=== PATIENT | male | born 1950 | race Caucasian/White ===

== ENCOUNTER 2022-03-09 05:00 | Outpatient (REF) | payer MEDICARE, SELFPAY | END 2022-03-09 05:01 | disposition home or self-care (01) | LOC: HO.MMNH1L 05:00 | PROVIDERS: Visit Provider Family Medicine | DX: Z13.89 Encounter for screening for other disorder (principal) ==

== ENCOUNTER 2023-11-16 14:43 | Inpatient (IN) | payer MEDICARE, SELFPAY ==
--- NOTE | 2023-11-16 | ECG_ITS ---
Test Reason : AMS Blood Pressure : / mmHG Vent. Rate : 072 BPM Atrial Rate : 072 BPM P-R Int : 140 ms QRS Dur : 144 ms QT Int : 468 ms P-R-T Axes : -27 -78 080 degrees QTc Int : 512 ms Atrial-sensed ventricular-paced rhythm Abnormal ECG No previous ECGs available Referred By: Generic ED Physician Electronically Signed By:Alfonzo Magana
--- NOTE | ~2023-11-16 | XR_ITS ---
EXAMINATION: XR CHEST CLINICAL INFORMATION: Lethargy. COMPARISON: None available. TECHNIQUE: Frontal view of the chest was obtained. FINDINGS: The lungs are well-expanded and clear. The heart size and pulmonary vascularity is normal. There are dual pacer electrodes in right atrium and right ventricle. No gross bony abnormality seen. XR/XR chest 1V IMPRESSION: Unremarkable chest exam.
--- NOTE | ~2023-11-16 | US_ITS ---
EXAMINATION: US VENOUS WITH DOPPLER UPPER EXTREMITY, BILATERAL CLINICAL INFORMATION: Bilateral arm swelling COMPARISON: None available. TECHNIQUE: Ultrasound of the upper extremity is performed using compression sonography and color and pulse Doppler flow with assessment of augmentation of flow. There is also imaging and Doppler assessment of the jugular and subclavian veins. Spectral analysis with color-flow imaging is performed. FINDINGS: Edema is noted bilaterally. In the left arm, there are limited views of the left subclavian vein due to pacemaker. A single left brachial vein is noted. Evaluation of the right arm is very limited due to significant edema and overlying (patent) fistula (loop graft). Plaque is seen within the graft. The right basilic and forearm veins are not seen. Left arm: The left internal jugular and visualized portions of the left subclavian vein are patent with normal flow. Respiratory variation and normal compression are noted within the left axillary, brachial, basilic, cephalic and radial and ulnar veins. Right arm: The right internal jugular and subclavian vein are patent with normal flow. Respiratory variation and normal compression are noted within the right axillary, brachial and cephalic veins. The right basilic vein and forearm veins are not seen. US/US venous duplex UE BI IMPRESSION: No DVT demonstrated in the bilateral upper extremities.
--- NOTE | ~2023-11-16 | CT_ITS ---
EXAMINATION: CT CHEST, ABDOMEN AND PELVIS WITHOUT CONTRAST CLINICAL INFORMATION: Altered mental status, cough, abdominal pain COMPARISON: None TECHNIQUE: Multidetector volumetric imaging was performed from the thoracic inlet through the pubic symphysis. Sagittal and coronal reformatted images were obtained on the technologist's workstation. Axial MIP volume rendering provided. This CT examination was performed using dose optimization techniques as appropriate, variously including the following: *Automated exposure control *Adjustment of mA and/or kV according to patient size (this includes techniques or standardized protocols for targeted exams where dose is matched to indication/reason for exam; i.e. extremities or head) *Use of iterative reconstruction technique DLP: 1319 mGy-cm FINDINGS: CHEST: Lungs: Limited evaluation due to respiratory motion artifact. There is mild dependent atelectasis in the bilateral lower lobes. No additional consolidation is seen. Mediastinum: Thyroid gland is grossly unremarkable. No discrete mediastinal lymphadenopathy is seen, though evaluation is limited without intravenous contrast. Borderline cardiomegaly without pericardial effusion. There is atherosclerotic calcification along the aorta. Coronary Artery Calcification: Present. Patient appears to be status post CABG. Pleura: No pneumothorax. Small pleural effusions. Chest Wall/Axilla: No significant lymphadenopathy. Chest wall varices are noted. Left-sided pacemaker/AICD. ABDOMEN/PELVIS: Suboptimal assessment due to streak artifact secondary to patient's arms by his sides. Liver, Gallbladder, Biliary Tree: The liver is normal in size, shape, and attenuation. No focal hepatic lesion or biliary ductal dilatation is identified on this noncontrast exam. Gallbladder is not adequately evaluated due to streak artifact. Pancreas: Moderately atrophic, suboptimally assessed in the absence of intravenous contrast. Spleen: Unremarkable. Adrenal Glands: Left adrenal nodule measuring up to 1.3 cm and less than 10 Hounsfield units, favoring a lipid rich adenoma. Right adrenal gland appears grossly unremarkable. Kidneys and Ureters: [place]olai kidneys are atrophic with cortical thinning, without hydronephrosis. Right pelvic transplant kidney is present, without appreciable hydronephrosis. Bladder: Mildly distended with diffuse mural prominence. Gastrointestinal Tract: There is prominent distention of the stomach with gas and debris. There is dependent gas along the posterior wall of the fundus, raising suspicion for gastric emphysema. There is also a somewhat thick-walled appearance of the proximal gastric wall. No evidence of bowel obstruction. There is a thick-walled appearance of the ascending colon with adjacent stranding and trace fluid in the right paracolic gutter, which may be indicative of a colitis. Large amount of stool is noted in the rectum. No free air is seen. There is also trace fluid in the left lower quadrant and diffuse mesenteric stranding. Abdominal Wall: Anasarca noted. Lymphovascular Structures: Lymph nodes: No lymphadenopathy is seen, though assessment is limited in the absence of intravenous contrast. Vascular: There is extensive vascular calcification. Pelvic Viscera: Prostate gland appears mildly prominent. OSSEOUS STRUCTURES: Flowing osteophytes in the thoracic spine suggesting diffuse idiopathic skeletal hyperostosis. Status post sternotomy. Degenerative changes are present in the lumbar spine. CT/CT abdomen pelvis wo IV con IMPRESSION: 1. Prominent distention of the stomach with gas and debris. Gas gas along the posterior wall of the gastric fundus, raising suspicion for gastric emphysema. Possible etiologies include emphysematous gastritis, ischemia, or perforated gastric ulcer. 2. Thick-walled appearance of the ascending colon with adjacent stranding and trace fluid, which may be indicative of a colitis. 3. Small pleural effusions. 4. Anasarca. This critical result was discussed with Dr. Mart on 11/17/2023 1:54 AM, and it was ascertained that the content and urgency of the report was understood at the time of direct communication.
--- NOTE | ~2023-11-16 | CT_ITS ---
EXAMINATION: CT head/brain wo IV con CLINICAL INFORMATION: Reason for Exam Change in mental status, rule out fracture, bleed COMPARISON: None. TECHNIQUE: Contiguous axial imaging was performed from the skull base to vertex without intravenous contrast. Sagittal and coronal reformatted images were obtained. This CT examination was performed using dose optimization techniques as appropriate, variously including the following: * Automated exposure control * Adjustment of mA and/or kV according to patient size (this includes techniques or standardized protocols for targeted exams where dose is matched to indication/reason for exam; i.e. extremities or head) Use of iterative reconstruction technique DLP: 803.18 mGy-cm FINDINGS: No acute osseous or soft tissue abnormality. Diffuse vascular calcifications. The mastoids are clear. There is mucosal thickening involving the maxillary and ethmoid sinuses with near complete opacification of the left maxillary sinus which contains central hyperdense material which may reflect secretion inspissation or fungal colonization. Hyperostosis of the left maxillary sinus briones is compatible with sequela of chronic sinusitis. There is no evidence of acute intracranial hemorrhage or territorial infarction. No abnormal mass effect or midline shift is seen. Choi to white matter differentiation is well preserved. No extra-axial fluid collections are identified. No hydrocephalus. Proportional prominence of the ventricles and sulcal spaces is consistent with moderate volume loss. Patchy periventricular and deep white matter hypoattenuation is consistent with mild small vessel ischemic changes. Chronic lacunar infarcts versus prominent perivascular space in the right central myron. CT/CT head/brain wo IV con IMPRESSION: No acute intracranial abnormality including hemorrhage, mass effect, hydrocephalus, or acute territorial edematous infarction.
--- NOTE | ~2023-11-16 | CT_ITS ---
EXAMINATION: CT ABDOMEN AND PELVIS WITHOUT CONTRAST CLINICAL INFORMATION: Question gastric wall air COMPARISON: CT from earlier the same day TECHNIQUE: Multidetector volumetric imaging was performed from the superior aspect of the liver through the pubic symphysis. Oral contrast was utilized. Sagittal and coronal reformatted images were obtained on the technologist's workstation. This CT examination was performed using dose optimization techniques as appropriate, variously including the following: *Automated exposure control *Adjustment of mA and/or kV according to patient size (this includes techniques or standardized protocols for targeted exams where dose is matched to indication/reason for exam; i.e. extremities or head) *Use of iterative reconstruction technique DLP: 794 mGy-cm FINDINGS: LUNG BASES: Redemonstrated small pleural effusions and mild dependent atelectasis. LIVER, GALLBLADDER, AND BILIARY TREE: The liver is normal in size, shape, and attenuation. No focal hepatic lesion or biliary ductal dilatation is identified on this noncontrast exam. Gallbladder appears partially contracted, suboptimally assessed. PANCREAS: Moderately atrophic, otherwise suboptimally assessed. SPLEEN: Grossly unremarkable. ADRENAL GLANDS: Redemonstrated left adrenal nodule, previously suggestive of a lipid rich adenoma. Right adrenal gland is unremarkable. KIDNEYS AND URETERS: The [place] kidneys are atrophic, without hydronephrosis. Right pelvic transplant kidney is noted without appreciable hydronephrosis. BLADDER: Unremarkable. GASTROINTESTINAL TRACT: Oral contrast material is present in the stomach. There is redemonstrated gas along the posterior wall of the gastric fundus and proximal body, dependent relative to the ingested oral contrast. Appearance remains suspicious for gastric emphysema. Contrast material is present throughout the small bowel as well as the proximal colon. No evidence of bowel obstruction. Thick-walled appearance of the ascending colon is again noted moderate amount of stool in the rectum along with some perirectal stranding. Appendix appears gas-filled. Trace free fluid in the abdomen along with diffuse mesenteric stranding/edema. ABDOMINAL WALL: Redemonstrated anasarca. LYMPH NODES: Numerous retroperitoneal lymph nodes, some of which measure near the upper limits of normal in size, suboptimally assessed without intravenous contrast. VASCULAR: Extensive vascular calcification. PELVIC VISCERA: Prostate gland appears mildly prominent. OSSEOUS STRUCTURES: Degenerative changes in the lumbar spine. CT/CT abdomen pelvis wo IV con IMPRESSION: 1. Redemonstrated gas along the posterior wall of the gastric fundus and proximal body, suspicious for gastric emphysema. Differential considerations would include emphysematous gastritis, ischemia, or perforated gastric ulcer. 2. Thick-walled appearance of the ascending colon, which could be secondary to colitis. There is also moderate stool in the rectum with perirectal stranding, which can be seen in the setting of stercoral colitis. 3. Redemonstrated small pleural effusions, anasarca, and diffuse mesenteric stranding/edema.
[2023-11-16 15:35] VITALS: BP 112/62; BP 146/105; PULSE 70; PULSE 71; RESP 18; TEMP 36.6; O2SAT 96; BMI 24.3
--- NOTE | 2023-11-16 15:40 | ED_ITS ---
HPI - Altered Mental Status General Chief Complaint: Altered Mental Status Stated Complaint: LETHARGIC Time Seen by Provider: 11/16/23 15:40 Source: EMS Mode of arrival: EMS Limitations: altered mental status History of Present Illness HPI narrative: 73-year-old male who was sent to the emergency department from [facility] for evaluation of altered mental status. The following information was provided by the nursing facility: ?Per Marylin tomas AP RN patient needs to be sent out to [facility] for further evaluation. Low WBC and low BP. made aware . Nursing facility did send in blood work from 11/16/2023 at 06:05 100 hours [place] [address], microcytic anemia with an H&H of 10.1 and 31.9 with an MCV of 72. Glucose was elevated 243. Sodium was elevated 148. Chloride elevated 113. Her BUN elevated 78 with a creatinine of 3.24. There were no baseline labs provided. EMT report was that the patient had altered mental status, is lethargic since 07:00. The patient is somnolent, he does answer questions, he was able to tell me his name. He does not know why he is here in the emergency department but he is refusing all testing. I did speak to the patient's ex- Irena who is the patient's healthcare proxy . She states that the healthcare proxy has not been invoked and the patient has been able to make his own healthcare decisions however there was some discussion with the [facility] about getting the patient evaluated for competency. This has not been done yet. I did obtain a discharge record from [facility] dated 11/12/2023. Discharge diagnosis is as follows: Fall, acute on chronic systolic and diastolic heart failure with EF of 10%, DVT on Xarelto, ICD, acute kidney injury superimposed on chronic kidney disease, donor kidney transplant, high anion gap metabolic acidosis, diabetes mellitus type 2, long-term current use of tacrolimus, pancreatic lesion, coronary disease. Patient's discharge BUN and creatinine was 91 and 3.8. Related Data Allergies Allergy/AdvReac Type Severity Reaction Status Date / Time No Known Allergies Allergy Verified 11/16/23 15:52 [facility] Social History Social History Advance Directives: Yes Advance Directives on File: Yes Advance Directives Date on File: 11/16/23 Physical Exam ED Vital Signs: Vital Signs - 24 hr 11/16/23 15:35 11/16/23 18:11 Temperature 98 F 97.7 F Pulse Rate 71 70 Respiratory Rate 18 14 Blood Pressure 146/105 H 120/40 L Pulse Oximetry 96 96 Oxygen Delivery Method Room Air Room Air BMI result Body Mass Index 24.3 Mental health vital signs revealed normal temperature, elevated blood pressure of 146/105, normal O2 saturation of 96% on room air Exam: General: Somnolent, arousable, oriented to person, lacks insight as to why he is here Head: Normocephalic, atraumatic EENT: Pupils were pinpoint, Lids normal, sclera normal, conjunctiva normal, nose normal , ears normal, throat without erythema or exudates Neck: Supple, no adenopathy Lung: breath sounds symmetric, no wheezing, rales or rhonchi Chest: symmetric movement, nontender Heart: regular rate and rhythm, normal S1, S2 no murmurs or rubs Abdomen: soft, non-tender, nondistended, normal bowel sounds Back: no vertebral tenderness, no CVAT Extremities: Patient has nonpitting edema of his upper extremities Neuro: Oriented to person, moves all extremities symmetrically Medications Administered Discontinued Medications Generic Name Dose Route Start Last Admin Trade Name Freq PRN Reason Stop Dose Admin Naloxone HCl 4 mg 11/16/23 15:58 11/16/23 16:10 Naloxone Hcl Nasal 4 Mg [place] NOSTRILALT 11/16/23 15:59 4 mg ONCE ONE Administration Medical Decision Making Medical Decision Making [facility] Narrative: 73-year-old male history of diabetes mellitus, GERD, kidney transplant on tacrolimus who was sent to the emergency department from [facility] for evaluation of altered mental status. According to his ex- the patient was recently hospitalized at [facility] and discharged on 11/12/2023. Patient was hospitalized for fall at home with possibly prolonged downtime. Nursing facility did send in blood work from 11/16/2023 at 06:05 100 hours [place] [address], microcytic anemia with an H&H of 10.1 and 31.9 with an MCV of 72. Glucose was elevated 243. Sodium was elevated 148. Chloride elevated 113. Her BUN elevated 78 with a creatinine of 3.24. With discharge BUN creatinine of 91 and 3.8 on 11/12/2023 from [facility].. Patient did have pinpoint pupils and he was given Narcan in 4 mg intranasally which did seem to wake him up somewhat but he still refused all testing. Differential diagnosis: ?Includes but is not limited to stroke, intracranial bleed, pneumonia, urinary tract infection, unintentional narcotic overdose Following evaluation was ordered: CBC, CMP, lactic acid, lipase, PT/INR, PTT, urinalysis, blood cultures x2, chest x-ray, CT scan of the head without IV contrast Patient was initially treated with the following: Narcan 4 mg intranasally Course: 21:24 Patient is complaining use interventions and according to his ex- Irena who is the patient's healthcare proxy, the healthcare proxy is not been invoked the patient has not had a competency exam. The patient's ex-, Cheryl was able to convince the patient to let us put an ultrasound-guided IV and complete his evaluation. At the end of my shift, patient's care was turned over to my colleague, Dr. Ofelia Mart. Independent Interpretation Interpretation: My independent interpretation patient's one-view chest x-ray is as follows: No acute disease, the patient does have a pacemaker and sternal wires consistent with cardiac surgery Radiology Impression Discussion of test interpretation with radiology: I have reviewed the radiologist's reading. Radiologist Impression: XR chest 1V IMPRESSION: Unremarkable chest exam. Dictated By: Montana Kinney MD CT head/brain wo IV con IMPRESSION: No acute intracranial abnormality including hemorrhage, mass effect, hydrocephalus, or acute territorial edematous infarction. Dictated By: Jeremiah Yoon Discharge Plan Discharge Clinical Impression: Altered mental status Patient Disposition: Still a Patient
[2023-11-16] MEDS: Naloxone HCl Nasal 4 MG SPRAY NOSTRILALT (16:10)
--- NOTE | 2023-11-16 16:40 | PC.NURSE ---
multiple attempts by multiple techs and RN to draw blood. Patient does not allow for staff to even look for appropriate spot to draw blood, stating his arms are always swollen and no one is going to be able to get it. Dr. Crowley aware of patients refusals
--- NOTE | 2023-11-16 17:42 | PC.NURSE ---
Continues to refuse all lab work/attempts to place IV. Stating he is leaving
[2023-11-16 18:11] VITALS: BP 120/40; PULSE 70; RESP 14; TEMP 36.5; O2SAT 96
--- NOTE | 2023-11-16 18:16 | PC.NURSE ---
Patient stating he does make urine but he will not be providing a sample at this time, continues to refuse lab draws
--- NOTE | 2023-11-16 20:13 | PC.NURSE ---
Update given to pts at this time.
--- NOTE | 2023-11-16 22:15 | PHA.MEDREC ---
Pharmacy Consult ? Medication Reconciliation Pharmacy has completed the medication reconciliation. Patient from [facility] with med list. Rosa Flaherty, JoseD
[2023-11-16 22:17] LABS: Basophils Percent Auto 0.2 % (0-2); Imm Gran Pct Auto 0.6 % (0.0-0.4); MANUAL DIFF FLAG SCAN; SCAN SMEAR FLAG 1
[2023-11-16 22:19] LABS: Eosinophils Absolute Auto 0.2 X10*3/uL (0.0-0.4); Eosinophils Percent Auto 1.5 % (0-4); Hematocrit 31.5 % (42.0-52.0); Hemoglobin 9.5 g/dl (14.0-18.0); Imm Gran Abs Auto 0.09 X10*3/uL (0.00-0.03); Lymphocytes Absolute Auto 0.8 X10*3/uL (1.2-4.9); Lymphocytes Percent Auto 4.9 % (20-40); Mean Corpuscular HGB Conc 30.2 g/dl (31.0-36.0); Mean Corpuscular Volume 72.9 fL (80.0-98.0); Monocytes Absolute Auto 1.1 X10*3/uL (0.1-1.2); Monocytes Percent Auto 6.6 % (2-11); Neutrophils Percent Auto 86.2 % (45-73); Platelet Count 129 X10*3/uL (160-400); Red Blood Count 4.32 X10*6/uL (4.60-5.80); Red Cell Distribution Width 19.3 % (11.0-16.0); White Blood Count 16.2 X10*3/uL (4.8-10.8)
[2023-11-16 22:23] LABS: Prothrombin Time 11.9 SEC (11.1-13.3)
[2023-11-16 22:25] LABS: Partial Thromboplastin Time 35.5 SEC (26.0-36.8)
[2023-11-16 22:28] VITALS: BP 157/55; PULSE 74; RESP 14; O2SAT 99
[2023-11-16 22:28] LABS: Ammonia 23 umol/L (13-55)
[2023-11-16 22:36] LABS: Alanine Aminotransferase 15 U/L (0-40); Albumin Level 3.2 g/dL (3.5-5.0); Alkaline Phosphatase 77 U/L (39-117); Anion Gap 14 (12-20); Aspartate Amino Transferase 16 U/L (5-37); Bilirubin Total 0.8 mg/dL (0.0-1.0); Blood Urea Nitrogen 79 mg/dL (9-16); Calcium 10.3 mg/dL (8.4-10.2); Carbon Dioxide 26 mmol/L (22-29); Chloride 110 mmol/L (96-108); Creatinine Clr Calc Pharmacy 21.5; Estimated Glomerular Filt Rate 21; Glucose Random 289 mg/dL (60-115); Lipase 14 U/L (8-78); Potassium 4.1 mmol/L (3.3-5.1); Sodium 146 mmol/L (135-145); Total Protein 6.8 g/dL (6.5-8.0)
[2023-11-16 22:39] LABS: Lactic Acid 2.7 mmol/L (0.5-2.0); PLT ABN DIST 1
[2023-11-16 22:41] LABS: SLIDE REVIEW VERIFIED
[2023-11-16] MEDS: 0.9 % Sodium Chloride 1,000 ML 999 ML IV (23:30)
[2023-11-16] MEDS: cefTRIAXone sodium 2 GM in 0.9 % Sodium Chloride 50 ML IV (23:52)
[2023-11-17] VITALS (7 sets, daily range): BP systolic 119–182; BP diastolic 50–101; PULSE 68–75; RESP 12–20; TEMP 36.4–36.9; O2SAT 91–100
[2023-11-17 00:09] LABS: Appearance Urine Clear; Color Urine Yellow; Glucose Urine UA 250 mg/dL (Negative); Leukocyte Esterase Urine Trace (Negative); Nitrite Urine Negative (Negative); PH 5.5 (5.0-9.0); UMIC TRIGGER UACC YES; Urine Blood Negative (Negative); Urine Ketones Negative (Negative); Urine Protein Trace mg/dL (Neg-Trace)
[2023-11-17 00:14] LABS: Reflex Lactate? Lactic Acid Added
[2023-11-17 00:15] LABS: Bacteria Urine None Seen (None Seen); Hyaline Casts Urine 0-2 /LPF (0-2); RBC Urine 0-2 /HPF (0-2); Squamous Epithelial Cell Urine 0-2 /HPF (0-2); WBC Urine 0-5 /HPF (0-5)
[2023-11-17] MEDS: Diatrizoate Meglumine, Sodium 30 ML SOLUTION PO (03:07)
[2023-11-17 07:21] LABS: ~Lactic Acid-LAB USE ONLY 1.1 mmol/L (0.5-2.0)
--- NOTE | 2023-11-17 08:31 | PM.IMHP ---
History of Present Illness Date of Service: 11/17/23 Chief Complaint: ams 73M PMH CAD s/p cabg, hfref EF 30%, DM, CKD IIIB, kidney transplant status, history of DVT on xarelto, renal artery stenosis of transplant kidney, advanced dementia presented with ams. patient recently [place] [facility] [place] hospitalization for fall, hyperglycemia, valentin, delerium. [facility] noted to be lethargic and confused. labs at [facility] found leukocystotis, hypernatremia so sent to ED. in ED ct showed gastric emphysema and colitis. patient denies any complaints himself. Review of Systems Review of Systems: Yes all other systems are reviewed and are negative [facility] Social History Advance Directives: Yes Advance Directives on File: Yes Advance Directives Date on File: 11/16/23 Meds Allergies Allergy/AdvReac Type Severity Reaction Status Date / Time No Known Allergies Allergy Verified 11/16/23 15:52 Active Medications: Current Medications Atorvastatin Calcium (Atorvastatin Calcium 40 Mg Tablet) 40 mg PO BEDTIME NELSON Carvedilol (Carvedilol 25 Mg Tablet) 25 mg PO BID NELSON; Protocol Dextrose (Dextrose 50 % 25 Gm/50 Ml Syringe) 25 gm IVPUSH Q15M PRN; Protocol PRN Reason: per Hypoglycemia Standing Ord. Glucose (Glucose Gel 15 Gm Gel..Gram.) 15 gm PO Q15M PRN; Protocol PRN Reason: per Hypoglycemia Standing Ord. Dextrose/Sodium Chloride (D51/2ns) 1,000 mls @ 80 mls/hr IVCONT .[id number] [facility] Piperacillin Sod/Tazobactam (Sod 3.375 gm/ Sodium Chloride) 50 mls @ 100 mls/hr IV Q8H [facility] Insulin Glargine (Insulin Glargine,Hum.Rec.Anlog 100 Unit/Ml 10 Ml Vial) 10 unit SUBCUT BEDTIME NELSON Insulin Human Lispro (Insulin Lispro 100 Unit/Ml 3 Ml Vial) 0 unit SUBCUT QIDACHS [facility]; Protocol Pantoprazole Sodium (Pantoprazole Sodium 40 Mg/10 Ml Vial) 40 mg IVPUSH BID@0630,1630 [facility] Tacrolimus (Tacrolimus 0.5 Mg Capsule) 1.5 mg PO BEDTIME NELSON Tacrolimus (Tacrolimus 1 Mg Capsule) 2 mg PO DAILY [facility] Home Medications Medication Instructions Recorded Confirmed Last Taken Type acetaminophen 325 mg tablet 975 mg PO TID 11/16/23 11/16/23 Unknown History aspirin 81 mg chewable tablet 81 mg PO DAILY 11/16/23 11/16/23 Unknown History atorvastatin 40 mg tablet 40 mg PO BEDTIME 11/16/23 11/16/23 Unknown History carvedilol 25 mg tablet 25 mg PO BID 11/16/23 11/16/23 Unknown History insulin aspart U-100 100 unit/mL 0 sliding scale dose subcut QIDACHS 11/16/23 11/16/23 Unknown History (3 mL) subcutaneous pen (Novolog FlexPen U-100 Insulin aspart) insulin glargine 100 unit/mL (3 10 unit subcut BEDTIME 11/16/23 11/16/23 Unknown History mL) subcutaneous pen (Lantus Solostar U-100 Insulin) lactulose 10 gram/15 mL oral 10 g PO DAILY PRN Constipation 11/16/23 11/16/23 Unknown History solution pantoprazole 20 mg tablet,delayed 20 mg PO DAILY 11/16/23 11/16/23 Unknown History release sennosides 8.6 mg tablet (senna) 17.2 mg PO DAILY 11/16/23 11/16/23 Unknown History tacrolimus 0.5 mg capsule, 1.5 mg PO BEDTIME 11/16/23 11/16/23 Unknown History immediate-release tacrolimus 0.5 mg capsule, 2 mg PO DAILY 11/16/23 11/16/23 Unknown History immediate-release trazodone 50 mg tablet 25 mg PO BEDTIME PRN Insomnia 11/16/23 11/16/23 Unknown History Physical Exam Vital Signs and Narrative: Vital Signs: Last Vital Signs Temp 97.8 F 11/17/23 04:17 Pulse 75 11/17/23 04:17 Resp 12 11/17/23 04:17 BP 120/100 H 11/17/23 04:17 Pulse Ox 98 11/17/23 04:17 O2 Del Method Room Air 11/17/23 04:17 BMI result Body Mass Index 24.3 Results Labs 11/16/23 22:05 11/16/23 22:05 Labs: Laboratory Results - last 24 hr 11/16/23 11/17/23 11/17/23 22:05 00:02 07:07 MCV 72.9 L MCH 22.0 L MCHC 30.2 L RDW 19.3 H Plt Count 129 L D MPV Not Reportable Immature Gran % (Auto) 0.6 H Neut % (Auto) 86.2 H Lymph % (Auto) 4.9 L Hanson % (Auto) 6.6 Eos % (Auto) 1.5 Baso % (Auto) 0.2 Lymph # (Auto) 0.8 L [place] # (Auto) 1.1 Eos # (Auto) 0.2 Baso # (Auto) 0.0 Abs Immat Gran (auto) 0.09 H Absolute Neuts (auto) 14.0 H Absolute Nucleated RBC 0.000 Nucleated RBC % (auto) 0.0 Smear Tech's Comments VERIFIED PT 11.9 INR 1.0 APTT 35.5 Anion Gap 14 Estim Creat Clear Calc 21.5 Estimated GFR 21 Random Glucose 289 H Lactic Acid 2.7 H* Lactic Acid F/U @ 2Hr 1.1 Calcium 10.3 H D Total Bilirubin 0.8 AST 16 ALT 15 Alkaline Phosphatase 77 Ammonia 23 Total Protein 6.8 Albumin 3.2 L Lipase 14 Urine Color Yellow Urine Appearance Clear Urine pH 5.5 Ur Specific [place] 1.020 Urine Protein Trace Urine Glucose (UA) 250 H Urine Ketones Negative Urine Blood Negative Urine Nitrite Negative Ur Leukocyte Esterase Trace H Urine RBC 0-2 Urine WBC 0-5 Ur Squamous Epith Cells 0-2 Urine Bacteria None Seen Hyaline Casts 0-2 Imaging Radiologist's Impressions: Impressions Chest X-Ray 11/16/23 16:10 IMPRESSION: Unremarkable chest exam. Head CT 11/16/23 21:34 IMPRESSION: No acute intracranial abnormality including hemorrhage, mass effect, hydrocephalus, or acute territorial edematous infarction. Abdomen/Pelvis CT 11/17/23 00:45 IMPRESSION: 1. Prominent distention of the stomach with gas and debris. Gas gas along the posterior wall of the gastric fundus, raising suspicion for gastric emphysema. Possible etiologies include emphysematous gastritis, ischemia, or perforated gastric ulcer. 2. Thick-walled appearance of the ascending colon with adjacent stranding and trace fluid, which may be indicative of a colitis. 3. Small pleural effusions. 4. Anasarca. This critical result was discussed with Dr. Mart on 11/17/2023 1:54 AM, and it was ascertained that the content and urgency of the report was understood at the time of direct communication. Chest CT 11/17/23 00:45 IMPRESSION: 1. Prominent distention of the stomach with gas and debris. Gas gas along the posterior wall of the gastric fundus, raising suspicion for gastric emphysema. Possible etiologies include emphysematous gastritis, ischemia, or perforated gastric ulcer. 2. Thick-walled appearance of the ascending colon with adjacent stranding and trace fluid, which may be indicative of a colitis. 3. Small pleural effusions. 4. Anasarca. This critical result was discussed with Dr. Mart on 11/17/2023 1:54 AM, and it was ascertained that the content and urgency of the report was understood at the time of direct communication. Abdomen/Pelvis CT 11/17/23 05:10 IMPRESSION: 1. Redemonstrated gas along the posterior wall of the gastric fundus and proximal body, suspicious for gastric emphysema. Differential considerations would include emphysematous gastritis, ischemia, or perforated gastric ulcer. 2. Thick-walled appearance of the ascending colon, which could be secondary to colitis. There is also moderate stool in the rectum with perirectal stranding, which can be seen in the setting of stercoral colitis. 3. Redemonstrated small pleural effusions, anasarca, and diffuse mesenteric stranding/edema. Assessment and Plan (1) Hyperglycemia due to diabetes mellitus: Status: Acute Plan 73M PMH CAD s/p cabg, hfref EF 30%, DM, CKD IIIB, kidney transplant status, history of DVT on xarelto, renal artery stenosis of transplant kidney, advanced dementia presented with ams 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, hypernatremia differential includes gatric ischemia, vs ephymsematous colitis, vs contained perforated ulcer no sepsis continue empiric ppi, zosyn, npo for now follow up cultures gen surgery appreciated, given goals of care, plan for conservative management hypernatremia d51/2ns, monitor CAD holding asa for possible pud continue statin hfref holding diuretics, monitor for fluid overload DM with hyperlgycemia basal bolus insulin history of DVt xarelto held CKD IIIB, kidney transplant creatinine improved from recent [facility] admission continue tracrolimus, monitor advanced dementia unspecified appears to be close to described new baseline. dvt prophylaxis - scd due to possible pud DNR/DNI patient with gastric emphysema requiring npo, ivf, iv abx, iv ppi, high mortality risk, will require atleast 2 midnights inpatient Quality Stroke Does the patient have a stroke diagnosis?: No VTE Prior VTE?: Yes VTE Risk Level:: Medical - moderate - high VTE Device Contraindication: N/A - Device Ordered VTE Drug Contraindication: Treatment Not Tolerated
--- NOTE | 2023-11-17 08:53 | PM.CNGS ---
History of Present Illness Consult details Consult date: 11/17/23 Narrative: 73-year-old male with multiple medical problems including history of kidney transplant, acute on chronic renal failure, coronary disease with CHF, brought to the ER from the residential last night because of altered mental status, a low blood pressure and elevated white count. He is not very good with history at this time and seems to be confused. He had a CAT scan suggesting air within the wall of the stomach suggestive of a contained perforation versus ischemic changes He has a complex history. His kidney transplant seems to be failing. Also he had quadruple bypass about 5 years ago after his bypass. He has been bed-bound for a few weeks now. According to his Cheryl, he has had declining health for the past year. Fallen at home about 3 weeks ago and needed to be admitted at [facility] for 9 days. He was just discharged to rehab about 5 days ago. The patient is unable to provide a good history are this time. He does seem to be uncomfortable. Review of Systems Review of Systems: Unavailable at this time Yes Unobtainable due to mental condition and Unobtainable due to mental status PMFSH Past Medical History Medical History (Updated 11/19/23 @ 22:20 by Tone Daniels MD) Abnormal CT scan, gastrointestinal tract Social History Social History Household Members: None Housing: House Do you presently have visiting nurse or other home services: Yes Patient Tobacco Use Status: Never used Tobacco Advance Directives Date on File: 11/16/23 service: No Meds Allergies Allergy/AdvReac Type Severity Reaction Status Date / Time No Known Allergies Allergy Verified 11/16/23 15:52 Active Medications: Current Medications Atorvastatin Calcium (Atorvastatin Calcium 40 Mg Tablet) 40 mg PO BEDTIME NELSON Carvedilol (Carvedilol 25 Mg Tablet) 25 mg PO BID NELSON; Protocol Dextrose (Dextrose 50 % 25 Gm/50 Ml Syringe) 25 gm IVPUSH Q15M PRN; Protocol PRN Reason: per Hypoglycemia Standing Ord. Glucose (Glucose Gel 15 Gm Gel..Gram.) 15 gm PO Q15M PRN; Protocol PRN Reason: per Hypoglycemia Standing Ord. Dextrose/Sodium Chloride (D51/2ns) 1,000 mls @ 80 mls/hr IVCONT .[id number] [facility] Piperacillin Sod/Tazobactam (Sod 3.375 gm/ Sodium Chloride) 50 mls @ 100 mls/hr IV Q6H [facility] Insulin Glargine (Insulin Glargine,Hum.Rec.Anlog 100 Unit/Ml 10 Ml Vial) 10 unit SUBCUT BEDTIME [facility] Insulin Human Lispro (Insulin Lispro 100 Unit/Ml 3 Ml Vial) 0 unit SUBCUT QIDACHS [facility]; Protocol Pantoprazole Sodium (Pantoprazole Sodium 40 Mg/10 Ml Vial) 40 mg IVPUSH BID@0630,1630 [facility] Sodium Chloride (0.9 % Sodium Chloride Flush 3 Ml Syringe) 3 ml IVFLUSH QSHIFT [facility] Tacrolimus (Tacrolimus 0.5 Mg Capsule) 1.5 mg PO BEDTIME [facility] Tacrolimus (Tacrolimus 1 Mg Capsule) 2 mg PO DAILY [facility] Home Medications Medication Instructions Recorded Confirmed Last Taken Type acetaminophen 325 mg tablet 975 mg PO TID 11/16/23 11/16/23 Unknown History aspirin 81 mg chewable tablet 81 mg PO DAILY 11/16/23 11/16/23 Unknown History atorvastatin 40 mg tablet 40 mg PO BEDTIME 11/16/23 11/16/23 Unknown History carvedilol 25 mg tablet 25 mg PO BID 11/16/23 11/16/23 Unknown History insulin aspart U-100 100 unit/mL 0 sliding scale dose subcut QIDACHS 11/16/23 11/16/23 Unknown History (3 mL) subcutaneous pen (Novolog FlexPen U-100 Insulin aspart) insulin glargine 100 unit/mL (3 10 unit subcut BEDTIME 11/16/23 11/16/23 Unknown History mL) subcutaneous pen (Lantus Solostar U-100 Insulin) lactulose 10 gram/15 mL oral 10 g PO DAILY PRN Constipation 11/16/23 11/16/23 Unknown History solution pantoprazole 20 mg tablet,delayed 20 mg PO DAILY 11/16/23 11/16/23 Unknown History release sennosides 8.6 mg tablet (senna) 17.2 mg PO DAILY 11/16/23 11/16/23 Unknown History tacrolimus 0.5 mg capsule, 1.5 mg PO BEDTIME 11/16/23 11/16/23 Unknown History immediate-release tacrolimus 0.5 mg capsule, 2 mg PO DAILY 11/16/23 11/16/23 Unknown History immediate-release trazodone 50 mg tablet 25 mg PO BEDTIME PRN Insomnia 11/16/23 11/16/23 Unknown History Physical Exam Vital Signs: Vital Signs: Last Vital Signs Temp 97.8 F 11/17/23 04:17 Pulse 75 11/17/23 04:17 Resp 12 11/17/23 04:17 BP 120/100 H 11/17/23 04:17 Pulse Ox 98 11/17/23 04:17 O2 Del Method Room Air 11/17/23 04:17 BMI result Body Mass Index 24.3 Const: Other: Awake but confused, not good with history, appears uncomfortable Resp: Other: Appears short of breath Cardio: Rate: regular rate GI: Other: Question of tenderness diffusely Palpation (GI): Soft to palpation and no guarding Results Labs 11/18/23 05:41 11/19/23 05:55 Labs: Abnormal lab results 11/16/23 11/17/23 Range/Units 22:05 00:02 WBC 16.2 H (4.8-10.8) X10*3/uL RBC 4.32 L D (4.60-5.80) X10*6/uL Hgb 9.5 L D (14.0-18.0) g/dl Hct 31.5 L D (42.0-52.0) % MCV 72.9 L (80.0-98.0) fL MCH 22.0 L (27.0-33.0) pg MCHC 30.2 L (31.0-36.0) g/dl RDW 19.3 H (11.0-16.0) % Plt Count 129 L D (160-400) X10*3/uL Immature Gran % (Auto) 0.6 H (0.0-0.4) % Neut % (Auto) 86.2 H (45-73) % Lymph % (Auto) 4.9 L (20-40) % Lymph # (Auto) 0.8 L (1.2-4.9) X10*3/uL Abs Immat Gran (auto) 0.09 H (0.00-0.03) X10*3/uL Absolute Neuts (auto) 14.0 H (2.0-8.3) x10*3/uL Sodium 146 H (135-145) mmol/L Chloride 110 H (96-108) mmol/L BUN 79 H (9-16) mg/dL Creatinine 2.96 H (0.5-1.4) mg/dL Random Glucose 289 H (60-115) mg/dL Lactic Acid 2.7 H* (0.5-2.0) mmol/L Calcium 10.3 H D (8.4-10.2) mg/dL Albumin 3.2 L (3.5-5.0) g/dL Urine Glucose (UA) 250 H (Negative) mg/dL Ur Leukocyte Esterase Trace H (Negative) Short CBC 11/16/23 Range/Units 22:05 WBC 16.2 H (4.8-10.8) X10*3/uL Hgb 9.5 L D (14.0-18.0) g/dl Hct 31.5 L D (42.0-52.0) % Plt Count 129 L D (160-400) X10*3/uL BMP 11/16/23 22:05 Sodium 146 H Potassium 4.1 Chloride 110 H Carbon Dioxide 26 BUN 79 H Creatinine 2.96 H Calcium 10.3 H D Liver Function 11/16/23 Range/Units 22:05 Total Bilirubin 0.8 (0.0-1.0) mg/dL AST 16 (5-37) U/L ALT 15 (0-40) U/L Alkaline Phosphatase 77 (39-117) U/L Albumin 3.2 L (3.5-5.0) g/dL Urine 11/17/23 Range/Units 00:02 Urine Color Yellow Urine Appearance Clear Urine pH 5.5 (5.0-9.0) Ur Specific [place] 1.020 (1.005-1.025) Urine Protein Trace (Neg-Trace) mg/dL Urine Glucose (UA) 250 H (Negative) mg/dL All other labs normal. Assessment and Plan (1) Abnormal CT scan, gastrointestinal tract: Status: Acute I have reviewed his CAT scan and this is suggestive of emphysema in the wall of the stomach. Differentials include contained perforation of the stomach versus ischemia. His lactate was markedly elevated last night but this is down to normal this morning. I had a long discussion with his ex- Cheryl. I explained to her that there has a significant chance that this ischemia may progress and cause free perforation. The option of surgical intervention was explained to her. However, the patient does have multiple medical problems. His ejection fraction is 10%. He has been bed-bound and has very poor frailty score. He has history of kidney transplant, and is on immunosuppression. His creatinine is elevated today Cheryl the ex- has stated that she does not want any surgical intervention. She states that she had signed a DNR order in [facility] while he was admitted there. She understands that he has multiple comorbid conditions and presents with significant perioperative risks. She is interested in hospice care for comfort measures only for the patient. She wants to discuss these options so she can plan on what the next step will be for the patient. Procedures Date of Service Date of Service: 11/22/23
[2023-11-17] MEDS: Dextrose 5 % and 0.45 % NaCl 1,000 ML 80 ML IVCONT (09:02)
[2023-11-17] MEDS: Piperacillin Sodium/Tazobactam 3.375 GM in 0.9 % Sodium Chloride 50 ML IV ×2 (09:03→15:36)
[2023-11-17] MEDS: Pantoprazole Sodium 40 MG/10 ML VIAL IVPUSH ×2 (09:03→17:19)
[2023-11-17 12:04] LABS: Glucose, Whole Blood 300 mg/dL (60-115)
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
[2023-11-17] MEDS: Insulin Lispro 100 UNIT/ML 3 ML VIAL SUBCUT ×2 (13:56→17:22)
[2023-11-17 16:20] LABS: Glucose, Whole Blood 294 mg/dL (60-115)
[2023-11-17] MEDS: 0.9 % Sodium Chloride Flush 3 ML SYRINGE IVFLUSH (17:23)
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
--- NOTE | 2023-11-17 17:33 | PC.NURSE ---
PT SEEN BY DR. CORMIER, PT AWARE OF PLAN OF CARE.
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
[2023-11-17 20:22] LABS: Glucose, Whole Blood 129 mg/dL (60-115)
[2023-11-17] MEDS: Insulin Glargine,Hum.rec.anlog 100 UNIT/ML 10 ML VIAL 10 UNIT SUBCUT (21:32)
--- NOTE | 2023-11-17 21:44 | PC.NURSE ---
Assumed care of pt at 1915. Brittany attempted unsuccessfully to place line using vein finder. Onur sup marquez and noted that Pt is ok to be transported to floor. ICU nurse will attempt to place line.
[2023-11-17] MEDS: carvediloL 25 MG TABLET PO (22:51)
--- NOTE | 2023-11-18 00:11 | HO.SKINPHOTO ---
Location: right buttock Category: pressure Stage: II Length: 1 Width: 1 Depth: cm Location: Category: Stage: Length: Width: Depth: cm Location: Category: Stage: Length: Width: Depth: cm Location: Category: Stage: Length: Width: Depth: cm Location: Category: Stage: Length: Width: Depth: cm Location: Category: Stage: Length: Width: Depth: cm
--- NOTE | 2023-11-18 00:13 | PC.NURSE ---
Pt's IV which was placed by US infiltrated in Overflow and pt's whole left arm/hand is very swollen. Pt has an old fistula to right upper arm that has not been used in years. Dr. Jasso OK'd to place another IV via US in left lower arm. When ICU nurse came up to attempt US IV pt refused. Dr. Jasso is aware.
[2023-11-18 04:00] VITALS: BP 104/49; PULSE 71; RESP 16; TEMP 36.4; O2SAT 96
[2023-11-18 06:09] LABS: Hematocrit 31.6 % (42.0-52.0); Hemoglobin 9.6 g/dl (14.0-18.0); Mean Corpuscular HGB Conc 30.4 g/dl (31.0-36.0); Mean Corpuscular Hemoglobin 21.9 pg (27.0-33.0); Mean Corpuscular Volume 72.1 fL (80.0-98.0); Platelet Count 131 X10*3/uL (160-400); Red Blood Count 4.38 X10*6/uL (4.60-5.80); Red Cell Distribution Width 19.3 % (11.0-16.0); White Blood Count 11.4 X10*3/uL (4.8-10.8)
[2023-11-18 06:21] LABS: Anion Gap 13 (12-20); Blood Urea Nitrogen 63 mg/dL (9-16); Calcium 10.3 mg/dL (8.4-10.2); Carbon Dioxide 25 mmol/L (22-29); Chloride 115 mmol/L (96-108); Creatinine Clr Calc Pharmacy 23.9; Estimated Glomerular Filt Rate 24; Glucose Fasting 92 mg/dL (60-99); Potassium 3.9 mmol/L (3.3-5.1); Sodium 149 mmol/L (135-145)
[2023-11-18 06:52] VITALS: BP 110/58; PULSE 73; RESP 16; TEMP 36.6; O2SAT 97
[2023-11-18 07:16] LABS: Glucose, Whole Blood 81 mg/dL (60-115)
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
--- NOTE | 2023-11-18 09:23 | P.PNIM_ITS ---
Subjective Subjective Date of Service: 11/18/23 Interval History: denies pain, reports hunger Physical Exam 2 Vital Signs: Vital Signs: Last Vital Signs Temp 97.8 F 11/18/23 06:52 Pulse 73 11/18/23 06:52 Resp 16 11/18/23 06:52 BP 110/58 L 11/18/23 06:52 Pulse Ox 97 11/18/23 06:52 O2 Del Method Room Air 11/18/23 06:52 BMI result Body Mass Index 24.3 lethargic oriented to person, city, not hospital or time abd soft, non tender Objective Data Active Medications Atorvastatin Calcium (Atorvastatin Calcium 40 Mg Tablet) 40 mg PO BEDTIME [facility] Last Admin: 11/17/23 21:42 Dose: Not Given Documented By: BERONICA Non-Admin Reason: pt not safe to swallow Carvedilol (Carvedilol 25 Mg Tablet) 25 mg PO BID [facility]; Protocol Last Admin: 11/17/23 22:51 Dose: 25 mg Documented By: OLEKSANDR Dextrose (Dextrose 50 % 25 Gm/50 Ml Syringe) 25 gm IVPUSH Q15M PRN; Protocol PRN Reason: per Hypoglycemia Standing Ord. Glucose (Glucose Gel 15 Gm Gel..Gram.) 15 gm PO Q15M PRN; Protocol PRN Reason: per Hypoglycemia Standing Ord. Dextrose/Sodium Chloride (D51/2ns) 1,000 mls @ 80 mls/hr IVCONT .[id number] [facility] Last Infusion: 11/17/23 23:42 Dose: 0 mls/hr Documented By: OLEKSANDR Piperacillin Sod/Tazobactam (Sod 3.375 gm/ Sodium Chloride) 50 mls @ 100 mls/hr IV Q6H [facility] Last Admin: 11/18/23 06:07 Dose: Not Given Documented By: OLEKSANDR Non-Admin Reason: No Access Insulin Glargine (Insulin Glargine,Hum.Rec.Anlog 100 Unit/Ml 10 Ml Vial) 10 unit SUBCUT BEDTIME [facility] Last Admin: 11/17/23 21:32 Dose: 10 unit Documented By: BERONICA Insulin Human Lispro (Insulin Lispro 100 Unit/Ml 3 Ml Vial) 0 unit SUBCUT QIDACHS [facility]; Protocol Last Admin: 11/18/23 09:10 Dose: Not Given Documented By: ZAKI Non-Admin Reason: No Insulin Coverage Pantoprazole Sodium (Pantoprazole Sodium 40 Mg/10 Ml Vial) 40 mg IVPUSH BID@0630,1630 [facility] Last Admin: 11/18/23 06:07 Dose: Not Given Documented By: OLEKSANDR Non-Admin Reason: No Access Sodium Chloride (0.9 % Sodium Chloride Flush 3 Ml Syringe) 3 ml IVFLUSH QSHIFT [facility] Last Admin: 11/18/23 09:11 Dose: Not Given Documented By: ZAKI Non-Admin Reason: No Access Tacrolimus (Tacrolimus 0.5 Mg Capsule) 1.5 mg PO BEDTIME [facility] Last Admin: 11/17/23 21:42 Dose: Not Given Documented By: BERONICA Non-Admin Reason: pt not safe to swallow Tacrolimus (Tacrolimus 1 Mg Capsule) 2 mg PO DAILY [facility] Last Admin: 11/17/23 11:01 Dose: Not Given Documented By: REE Non-Admin Reason: pt not safe to swallow Labs 11/18/23 05:41 11/18/23 05:41 Labs: Laboratory Results - last 24 hr 11/17/23 11/17/23 11/17/23 12:01 16:16 20:19 MCV MCH MCHC RDW Plt Count MPV Absolute Nucleated RBC Nucleated RBC % (auto) Anion Gap Estim Creat Clear Calc Estimated GFR POC Glucose 300 H 294 H 129 H Fasting Glucose Calcium 11/18/23 11/18/23 05:41 06:59 MCV 72.1 L MCH 21.9 L MCHC 30.4 L RDW 19.3 H Plt Count 131 L MPV Not Reportable Absolute Nucleated RBC 0.000 Nucleated RBC % (auto) 0.0 Anion Gap 13 Estim Creat Clear Calc 23.9 Estimated GFR 24 POC Glucose 81 Fasting Glucose 92 Calcium 10.3 H Microbiology Microbiology Results: Microbiology 11/16/23 22:05 Blood Culture - Preliminary Blood - Venous No growth after 24 hours. 11/16/23 22:05 Blood Culture - Preliminary Blood - Venous No growth after 24 hours. 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, hypernatremia differential includes gatric ischemia, vs ephymsematous colitis, vs contained perforated ulcer no sepsis continue empiric ppi, zosyn, advance to clears gen surgery appreciated, given goals of care, plan for conservative management hypernatremia d51/2ns, monitor CAD holding asa for possible pud continue statin hfref holding diuretics, monitor for fluid overload DM with hyperlgycemia basal bolus insulin history of DVt xarelto held CKD IIIB, kidney transplant creatinine improved from recent [facility] continue tracrolimus, monitor advanced dementia unspecified appears to be close to described new baseline. dvt prophylaxis - scd due to possible pud DNR/DNI reason for continued hospitalization:awaiting tolerating po Quality Stroke Does the patient have a stroke diagnosis?: No VTE Prior VTE?: Yes VTE Risk Level:: Medical - moderate - high VTE Device Contraindication: N/A - Device Ordered VTE Drug Contraindication: Treatment Not Tolerated
[2023-11-18] MEDS: carvediloL 25 MG TABLET PO ×2 (09:57→21:28)
[2023-11-18] MEDS: Tacrolimus 1 MG CAPSULE 2 MG PO (09:57)
[2023-11-18 11:24] VITALS: BMI 24.3
--- NOTE | 2023-11-18 11:27 | MHC.CLN ---
RE: CONSULT PT WITH INCREASED NUTRITION RISK R/T PRESSURE INJURY PT REPORTS POOR PO INTAKE BAND STRAIGHTENER DIET ADVANCED TO CLEARS TODAY RECOMMEND ADDING ENSURE CLEAR TID TO INCREASE KCALS AND PROMOTE WOUND HEALING SUPP TO PROVIDE 720KCALS, 24 G PROTEIN WILL ADVANCE SUPPLEMENT WITH DIET MONITOR PO INTAKE AND ENCOURAGE SUPPLEMENT SEE ALSO FULL CLINICAL NUTRITION ASSESSMENT
[2023-11-18 11:34] LABS: Glucose, Whole Blood 88 mg/dL (60-115)
--- NOTE | 2023-11-18 15:10 | MHC.CM.PN ---
Patient dx advanced dementia, sleeping at this time. BOOSTER PUMP OPERATOR completed with /HCP Cheryl via telephone. IMM verbally delivered. Per Cheryl, patient comes to [facility] from [facility] at [facility], where he was sent from recent admission at [facility] [place] Prior to [facility] [place] admission patient was living at home alone, though unable to care for himself. moved out of the home and initiated a divorce. Per previous CM note, there is an open case with [facility] and there is concern that is HCP. This CM LM for EC CM Dyan Irizarry ([phone]) to clarify if can still make healthcare decisions. Patient does not have capacity to appoint new HCP. CM director aware. Active w/ [facility]. reports patient did have [employer]EL[employer] through [facility] 1-2x weekly, but unsure if this is still in place. DP: Goal is return to [facility]. Will need new PT eval. also discussing desire for eventual LTC. Current insurance is [employer]. reports several thousand in funds in a joint account and a home that is owned by patient and , to be sold with proceeds split in half. reports [facility] supplied information for [employer] and she will be applying. CM will continue to follow for dc needs.
[2023-11-18 15:31] VITALS: BP 148/67; PULSE 71; RESP 18; TEMP 36.4; O2SAT 97
[2023-11-18 15:49] LABS: Glucose, Whole Blood 112 mg/dL (60-115)
--- NOTE | 2023-11-18 15:58 | HO.WOUND ---
Wound Consult: Initial 73yr old? Male admitted [place] [facility] [place] from [facility] - See progress notes and H&P for detailed history.? Wound consult placed for Right Buttock and toe wounds POA.? Patient agreeable to assessment and photo documentation.? Right Buttock Etiology: ?Stage 2 pressure injury - ?Present on Admission Measurements: see charting for detailed measurements Wound Bed: appears to be partial thickness tissue loss with pink red moist wound bed - evidence of previous injury with hypopigmentation noted in periwound Drainage / Odor: Sang[place] scant amount Edges: ? irregular Stefanie wound: Intact scattered areas of hyperpigmentation noted - ? No Induration, Fluctuance or Warmth noted Pain: denies Goals of Treatment: ? Barrier cream for moist wound healing and to protect from friction and moisture Left Heel Etiology: ?Diabetic Wound - ?Present on Admission Measurements: see charting for detailed measurements Wound Bed: darl stable eschar noted - no drainage no lifting edges Drainage / Odor: None Edges: ? irregular Stefanie wound: Intact scattered areas of redness noted - ? No Induration, Fluctuance or Warmth noted Pain: denies Goals of Treatment: ?Batadine to keep eschar stable and intact do not donate moisture to these sites Left Heel Etiology: ?Stage 1 pressure injury - ?Present on Admission Measurements: see charting for detailed measurements Wound Bed: red intact nonblanchable tissue Drainage / Odor: None Edges: ? attached Stefanie wound: Intact ? No Induration, Fluctuance or Warmth noted Pain: tenderness reported Goals of Treatment: ? Skin Prep to protect from friction and off load heels from surface of bed Right Toes Etiology: ?Diabetic Wound - ?Present on Admission Measurements: see charting for detailed measurements Wound Bed: dry stable eschar noted - no drainage no lifting edges Drainage / Odor: None Edges: ? irregular Stefanie wound: Intact scattered areas of redness noted - ? No Induration, Fluctuance or Warmth noted Pain: denies Goals of Treatment: ?Batadine to keep eschar stable and intact do not donate moisture to these sites Right Knee Etiology: Stage 2 Pressure Injury - ?Present on Admission Measurements: see charting for detailed measurements Wound Bed: adherent thin scab Drainage / Odor: None Edges: ? irregular Stefanie wound: Intact ? No Induration, Fluctuance or Warmth noted Pain: tenderness reported Goals of Treatment: ?Stable may keep open to air Recommendations: 1. Turn and Reposition every 2 hours and as needed for patient comfort.? Use pillows or wedges to support off loading positions. 2. Off Load all bony prominences with use of pillows and heel boots if needed.? Apply Preventative foams where needed. ? 3. Monitor for incontinence and moisture control, use barrier creams when needed for prevention and treatment. 4. Provide adequate and supplemental nutrition.? 5. Order low air loss mattress. 6. Maintain blood glucose levels per Providers order. 7. Left Heel and Right Toes - [place] with Betadine Daily - Leave open to air - do not donate moisture to these sites. Off Load Pressure from heels. 8. Right Heel - Apply skin prep to heel and float heel of of surface of bed. 9. Right Buttock - Cleanse with Ph balance cleanser, pat dry. Apply barrier cream to protect from friction and moisture. Apply twice daily and PRN after episodes of incontinence. Re-consult wound care Nurse for wound deterioration or wound changes.
--- NOTE | 2023-11-18 16:39 | PC.NURSE ---
Pt refusing IV access. Pt educated on pt need for IV fluids, IV abx - pt states he's had too many IV's and he doesn't want anymore. MD and community arts worker at bedside, both aware of pt refusing. Plan of care ongoing.
[2023-11-18 20:00] VITALS: BP 101/53; PULSE 70; RESP 18; TEMP 36.2; O2SAT 99
[2023-11-18 20:50] LABS: Glucose, Whole Blood 83 mg/dL (60-115)
[2023-11-18] MEDS: Atorvastatin Calcium 40 MG TABLET PO (21:28)
[2023-11-18] MEDS: Tacrolimus 0.5 MG CAPSULE 1.5 MG PO (21:28)
[2023-11-19 03:57] VITALS: BP 98/62; PULSE 64; RESP 18; TEMP 36.3; O2SAT 96
[2023-11-19 06:25] LABS: Anion Gap 15 (12-20); Blood Urea Nitrogen 58 mg/dL (9-16); Calcium 9.6 mg/dL (8.4-10.2); Carbon Dioxide 18 mmol/L (22-29); Chloride 115 mmol/L (96-108); Creatinine Clr Calc Pharmacy 21.2; Estimated Glomerular Filt Rate 21; Glucose Fasting 237 mg/dL (60-99); Potassium 5.4 mmol/L (3.3-5.1); Sodium 143 mmol/L (135-145)
[2023-11-19 07:29] LABS: Glucose, Whole Blood 225 mg/dL (60-115)
[2023-11-19 07:37] VITALS: BP 123/56; PULSE 68; RESP 16; TEMP 36.4; O2SAT 96
--- NOTE | 2023-11-19 07:55 | HO.PM.IMPN ---
Subjective Subjective Date of Service: 11/19/23 Interval History: more energetic, no complaints Physical Exam Vital Signs: Vital Signs: Last Vital Signs Temp 97.6 F 11/19/23 07:37 Pulse 68 11/19/23 07:37 Resp 16 11/19/23 07:37 BP 123/56 L 11/19/23 07:37 Pulse Ox 96 11/19/23 07:37 O2 Del Method Room Air 11/19/23 07:37 BMI result Body Mass Index 24.3 alert, oriented to person, place, and year, poor insight into medical conditions, vague historian abd soft, non tender lungs clear Objective Data Active Medications Atorvastatin Calcium (Atorvastatin Calcium 40 Mg Tablet) 40 mg PO BEDTIME [facility] Last Admin: 11/18/23 21:28 Dose: 40 mg Documented By: COTEMA Carvedilol (Carvedilol 25 Mg Tablet) 25 mg PO BID [facility]; Protocol Last Admin: 11/18/23 21:28 Dose: 25 mg Documented By: RENE Dextrose (Dextrose 50 % 25 Gm/50 Ml Syringe) 25 gm IVPUSH Q15M PRN; Protocol PRN Reason: per Hypoglycemia Standing Ord. Glucose (Glucose Gel 15 Gm Gel..Gram.) 15 gm PO Q15M PRN; Protocol PRN Reason: per Hypoglycemia Standing Ord. Insulin Glargine (Insulin Glargine,Hum.Rec.Anlog 100 Unit/Ml 10 Ml Vial) 10 unit SUBCUT BEDTIME [facility] Last Admin: 11/18/23 20:59 Dose: Not Given Documented By: RENE Non-Admin Reason: low blood sugar Insulin Human Lispro (Insulin Lispro 100 Unit/Ml 3 Ml Vial) 0 unit SUBCUT QIDACHS [facility]; Protocol Last Admin: 11/18/23 20:59 Dose: Not Given Documented By: RENE Non-Admin Reason: No Insulin Coverage Omeprazole (Omeprazole 40 Mg Marisa.) 40 mg PO BID@0630,1630 [facility] Last Admin: 11/19/23 06:12 Dose: Not Given Documented By: RENE Non-Admin Reason: Patient Refused Sodium Bicarbonate (Sodium Bicarbonate 650 Mg Tablet) 650 mg PO TID [facility] Sodium Chloride (0.9 % Sodium Chloride Flush 3 Ml Syringe) 3 ml IVFLUSH QSHIFT [facility] Last Admin: 11/18/23 21:18 Dose: Not Given Documented By: RENE Non-Admin Reason: No Access Tacrolimus (Tacrolimus 0.5 Mg Capsule) 1.5 mg PO BEDTIME [facility] Last Admin: 11/18/23 21:28 Dose: 1.5 mg Documented By: COTEMA Tacrolimus (Tacrolimus 1 Mg Capsule) 2 mg PO DAILY [facility] Last Admin: 11/18/23 09:57 Dose: 2 mg Documented By: CARYN-KUBAS Labs 11/18/23 05:41 11/19/23 05:55 Labs: Laboratory Results - last 24 hr 11/18/23 11/18/23 11/18/23 11:28 15:43 20:37 Anion Gap Estim Creat Clear Calc Estimated GFR POC Glucose 88 112 83 Fasting Glucose Calcium 11/19/23 11/19/23 05:55 07:26 Anion Gap 15 Estim Creat Clear Calc 21.2 Estimated GFR 21 POC Glucose 225 H Fasting Glucose 237 H Calcium 9.6 D Microbiology Microbiology Results: Microbiology 11/16/23 22:05 Blood Culture - Preliminary Blood - Venous No growth after 48 hours. 11/16/23 22:05 Blood Culture - Preliminary Blood - Venous No growth after 48 hours. 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, hypernatremia differential includes gatric ischemia, vs ephymsematous colitis, vs contained perforated ulcer no sepsis continue ppi po advancing to solids gen surgery appreciated, given goals of care, continue conservative management hypernatremia resolved hyperkalemia lokelma, monitor CAD holding asa for possible pud continue statin hfref holding diuretics, monitor for fluid overload DM with hyperlgycemia basal bolus insulin history of DVT xarelto held CKD IIIB, kidney transplant creatinine improved from recent [facility] [place] continue tracrolimus, monitor advanced dementia unspecified appears to be close to described new baseline. dvt prophylaxis - scd due to possible pud DNR/DNI reason for continued hospitalization:awaiting tolerating po Quality Stroke Does the patient have a stroke diagnosis?: No VTE Prior VTE?: Yes VTE Risk Level:: Medical - moderate - high VTE Device Contraindication: N/A - Device Ordered VTE Drug Contraindication: Treatment Not Tolerated
[2023-11-19] MEDS: Insulin Lispro 100 UNIT/ML 3 ML VIAL SUBCUT ×4 (07:56→20:55)
[2023-11-19] MEDS: Sodium Zirconium Cyclosilicate 10 GM POWD.PACK PO (07:57)
[2023-11-19] MEDS: Tacrolimus 1 MG CAPSULE 2 MG PO (07:57)
[2023-11-19] MEDS: Sodium Bicarbonate 650 MG TABLET PO ×3 (07:57→20:55)
[2023-11-19] MEDS: carvediloL 25 MG TABLET PO (07:57)
[2023-11-19 08:26] VITALS: BP 123/56; PULSE 68; O2SAT 96
[2023-11-19 11:09] LABS: Glucose, Whole Blood 283 mg/dL (60-115)
--- NOTE | 2023-11-19 12:30 | MHC.CLN ---
F/U PT WITH INCREASED NUTRITION RISK R/T PRESSURE INJURIES. DIET ADVANCED TO DIABETIC 1800 KCAL TODAY. CHANGING SUPPLEMENT TO ENSURE MAX PROTEIN BID. PROVIDES 300 KCALS, 60 PROTEIN. SUPPLEMENT TO PROMOTE WOUND HEALING. MONITOR PO INTAKE AND ENCOURAGE SUPPLEMENT.
[2023-11-19 15:27] VITALS: BP 132/61; PULSE 65; RESP 16; TEMP 36.5; O2SAT 98
[2023-11-19 16:17] LABS: Glucose, Whole Blood 265 mg/dL (60-115)
[2023-11-19] MEDS: Omeprazole 40 MG CAPSULE.DR PO (16:21)
[2023-11-19 19:23] VITALS: BP 103/54; PULSE 67; RESP 15; TEMP 36.6; O2SAT 94
[2023-11-19 20:43] LABS: Glucose, Whole Blood 335 mg/dL (60-115)
[2023-11-19] MEDS: Atorvastatin Calcium 40 MG TABLET PO (20:55)
[2023-11-19] MEDS: Tacrolimus 0.5 MG CAPSULE 1.5 MG PO (20:55)
[2023-11-19] MEDS: Insulin Glargine,Hum.rec.anlog 100 UNIT/ML 10 ML VIAL 10 UNIT SUBCUT (20:56)
--- NOTE | 2023-11-19 22:13 | P.CONNP_ITS ---
History of Present Illness Reason for Consult Consult date: 11/19/23 Chief Complaint Chief complaint: Emphysematous gastritis History of Present Illness Narrative: 73 year old with ischemic cardiomyopathy , CKD IIIB, kidney transplant, renal artery stenosis of transplant kidney, advanced dementia presented with ams. [place] [facility] [place] for [place], hyperglycemia, chun, delerium. patient was at [facility], noted to be lethargic and confused. labs at [facility] found leukocystotis, hypernatremia so sent to ED. in ED ct showed gastric emphysema and colitis. Nephrology has been consulted to assist in his clinical care during his current hospital stay Review of Systems Review of Systems Yes all other systems are reviewed and are negative [facility] Past Medical History Medical History (Updated 11/19/23 @ 22:20 by Tone Daniels MD) Abnormal CT scan, gastrointestinal tract Social History Social History Household Members: None Housing: House Do you presently have visiting nurse or other home services: Yes Patient Tobacco Use Status: Never used Tobacco Advance Directives Date on File: 11/16/23 service: No Meds Allergies Allergy/AdvReac Type Severity Reaction Status Date / Time No Known Allergies Allergy Verified 11/16/23 15:52 Active Medications: Current Medications Atorvastatin Calcium (Atorvastatin Calcium 40 Mg Tablet) 40 mg PO BEDTIME [facility] Last Admin: 11/19/23 20:55 Dose: 40 mg Carvedilol (Carvedilol 25 Mg Tablet) 25 mg PO BID [facility]; Protocol Last Admin: 11/19/23 21:02 Dose: Not Given Dextrose (Dextrose 50 % 25 Gm/50 Ml Syringe) 25 gm IVPUSH Q15M PRN; Protocol PRN Reason: per Hypoglycemia Standing Ord. Glucose (Glucose Gel 15 Gm Gel..Gram.) 15 gm PO Q15M PRN; Protocol PRN Reason: per Hypoglycemia Standing Ord. Insulin Glargine (Insulin Glargine,Hum.Rec.Anlog 100 Unit/Ml 10 Ml Vial) 10 unit SUBCUT BEDTIME [facility] Last Admin: 11/19/23 20:56 Dose: 10 unit Insulin Human Lispro (Insulin Lispro 100 Unit/Ml 3 Ml Vial) 0 unit SUBCUT QIDACHS [facility]; Protocol Last Admin: 11/19/23 20:55 Dose: 8 unit Omeprazole (Omeprazole 40 Mg Capsule.Dr) 40 mg PO BID@0630,1630 [facility] Last Admin: 11/19/23 16:21 Dose: 40 mg Sodium Bicarbonate (Sodium Bicarbonate 650 Mg Tablet) 650 mg PO TID [facility] Last Admin: 11/19/23 20:55 Dose: 650 mg Sodium Chloride (0.9 % Sodium Chloride Flush 3 Ml Syringe) 3 ml IVFLUSH QSHIFT [facility] Last Admin: 11/19/23 16:22 Dose: Not Given Tacrolimus (Tacrolimus 0.5 Mg Capsule) 1.5 mg PO BEDTIME [facility] Last Admin: 11/19/23 20:55 Dose: 1.5 mg Tacrolimus (Tacrolimus 1 Mg Capsule) 2 mg PO DAILY [facility] Last Admin: 11/19/23 07:57 Dose: 2 mg Home Medications Medication Instructions Recorded Confirmed Last Taken Type acetaminophen 325 mg tablet 975 mg PO TID 11/16/23 11/16/23 Unknown History aspirin 81 mg chewable tablet 81 mg PO DAILY 11/16/23 11/16/23 Unknown History atorvastatin 40 mg tablet 40 mg PO BEDTIME 11/16/23 11/16/23 Unknown History carvedilol 25 mg tablet 25 mg PO BID 11/16/23 11/16/23 Unknown History insulin aspart U-100 100 unit/mL 0 sliding scale dose subcut QIDACHS 11/16/23 11/16/23 Unknown History (3 mL) subcutaneous pen (Novolog FlexPen U-100 Insulin aspart) insulin glargine 100 unit/mL (3 10 unit subcut BEDTIME 11/16/23 11/16/23 Unknown History mL) subcutaneous pen (Lantus Solostar U-100 Insulin) lactulose 10 gram/15 mL oral 10 g PO DAILY PRN Constipation 11/16/23 11/16/23 Unknown History solution pantoprazole 20 mg tablet,delayed 20 mg PO DAILY 11/16/23 11/16/23 Unknown History release sennosides 8.6 mg tablet (senna) 17.2 mg PO DAILY 11/16/23 11/16/23 Unknown History tacrolimus 0.5 mg capsule, 1.5 mg PO BEDTIME 11/16/23 11/16/23 Unknown History immediate-release tacrolimus 0.5 mg capsule, 2 mg PO DAILY 11/16/23 11/16/23 Unknown History immediate-release trazodone 50 mg tablet 25 mg PO BEDTIME PRN Insomnia 11/16/23 11/16/23 Unknown History Physical Exam Vital Signs: Last Vital Signs Temp 98 F 11/19/23 19:23 Pulse 67 11/19/23 19:23 Resp 15 11/19/23 19:23 BP 103/54 L 11/19/23 19:23 Pulse Ox 94 11/19/23 19:23 O2 Del Method Room Air 11/19/23 19:23 BMI result Body Mass Index 24.3 Const General: comfortable and no acute distress HEENT Head: Yes normocephalic Mouth: Normal oral and palatal mucosa present Eyes EOM: EOMs intact bilaterally Neck Neck: Yes supple Resp Auscultation: clear to auscultation bilaterally Cardio Jugular venous distension: no JVD Rate: regular rate GI Palpation (GI): Soft to palpation Auscultation: normal bowel sounds General: Yes no CVA tenderness Back/Spine/Pelvis Back: no CVA tenderness Skin General skin exam: no rashes or lesions noted Neuro General: moves all extremities Results Lab Results 11/18/23 05:41 11/19/23 05:55 Lab results: Chemistry 11/16/23 11/18/23 11/19/23 22:05 05:41 05:55 Sodium 146 H 149 H 143 Potassium 4.1 3.9 5.4 H D Carbon Dioxide 26 25 18 L BUN 79 H 63 H 58 H Creatinine 2.96 H 2.66 H 2.99 H Calcium 10.3 H D 10.3 H 9.6 D Hematology 11/16/23 11/18/23 22:05 05:41 WBC 16.2 H 11.4 H Hgb 9.5 L D 9.6 L Plt Count 129 L D 131 L Urinalysis 11/17/23 00:02 Urine Color Yellow Urine Appearance Clear Urine pH 5.5 Ur Specific [place] 1.020 Urine Protein Trace Urine Glucose (UA) 250 H Urine Ketones Negative Urine Blood Negative Urine Nitrite Negative Ur Leukocyte Esterase Trace H Urine RBC 0-2 Urine WBC 0-5 Ur Squamous Epith Cells 0-2 Hyaline Casts 0-2 Assessment and Plan (1) Acute on chronic kidney failure: Qualifiers: Acute renal failure type: with acute tubular necrosis Chronic kidney disease stage: stage 3 (moderate) Chronic kidney disease stage 3 subtype: stage 3b (GFR 30-44) Qualified Code(s): N17.0 - Acute kidney failure with tubular necrosis; N18.32 - Chronic kidney disease, stage 3b Status: Acute Plan CHUN due to tubular injury NO reason to suspect GN/AIN Diuretics on hold Serum creatinine improving No change in tacrolimus dosage C/W rest of current management Procedures Date of Service Date of Service: 11/19/23
[2023-11-20 03:18] VITALS: BP 133/60; PULSE 66; RESP 18; TEMP 36.3; O2SAT 99
[2023-11-20] MEDS: Omeprazole 40 MG CAPSULE.DR PO ×2 (05:58→17:09)
[2023-11-20 07:28] VITALS: BP 129/68; PULSE 64; RESP 20; TEMP 36.3; O2SAT 98
[2023-11-20 07:30] LABS: Glucose, Whole Blood 250 mg/dL (60-115)
[2023-11-20] MEDS: Sodium Bicarbonate 650 MG TABLET PO ×3 (08:12→20:33)
[2023-11-20] MEDS: carvediloL 25 MG TABLET PO ×2 (08:12→20:33)
[2023-11-20] MEDS: Insulin Lispro 100 UNIT/ML 3 ML VIAL SUBCUT ×4 (08:12→20:34)
[2023-11-20] MEDS: Tacrolimus 1 MG CAPSULE 2 MG PO (08:13)
--- NOTE | 2023-11-20 08:52 | P.PNIM_ITS ---
Subjective Subjective Date of Service: 11/20/23 Interval History: no complaints Physical Exam 2 Vital Signs: Vital Signs: Last Vital Signs Temp 97.3 F 11/20/23 07:28 Pulse 64 11/20/23 07:28 Resp 20 11/20/23 07:28 BP 129/68 11/20/23 07:28 Pulse Ox 98 11/20/23 07:28 O2 Del Method Room Air 11/20/23 07:28 BMI result Body Mass Index 24.3 Const: General: comfortable and no acute distress HEENT: Head: Yes normocephalic Mouth: Normal oral and palatal mucosa present Eyes: EOM: EOMs intact bilaterally Neck: Neck: Yes supple Resp: Auscultation: clear to auscultation bilaterally Cardio: Jugular venous distension: no JVD Rate: regular rate GI: Palpation (GI): Soft to palpation Auscultation: normal bowel sounds : General: Yes no CVA tenderness Back/Spine/Pelvis: Back: no CVA tenderness Skin: General skin exam: no rashes or lesions noted Neuro: General: moves all extremities Objective Data Active Medications Atorvastatin Calcium (Atorvastatin Calcium 40 Mg Tablet) 40 mg PO BEDTIME [facility] Last Admin: 11/19/23 20:55 Dose: 40 mg Documented By: SIGRID Carvedilol (Carvedilol 25 Mg Tablet) 25 mg PO BID [facility]; Protocol Last Admin: 11/20/23 08:12 Dose: 25 mg Documented By: RUSSEL Dextrose (Dextrose 50 % 25 Gm/50 Ml Syringe) 25 gm IVPUSH Q15M PRN; Protocol PRN Reason: per Hypoglycemia Standing Ord. Glucose (Glucose Gel 15 Gm Gel..Gram.) 15 gm PO Q15M PRN; Protocol PRN Reason: per Hypoglycemia Standing Ord. Insulin Glargine (Insulin Glargine,Hum.Rec.Anlog 100 Unit/Ml 10 Ml Vial) 10 unit SUBCUT BEDTIME [facility] Last Admin: 11/19/23 20:56 Dose: 10 unit Documented By: SIGRID Insulin Human Lispro (Insulin Lispro 100 Unit/Ml 3 Ml Vial) 0 unit SUBCUT QIDACHS [facility]; Protocol Last Admin: 11/20/23 08:12 Dose: 4 unit Documented By: RUSSEL Omeprazole (Omeprazole 40 Mg Marisa.) 40 mg PO BID@0630,1630 [facility] Last Admin: 11/20/23 05:58 Dose: 40 mg Documented By: SIGRID Sodium Bicarbonate (Sodium Bicarbonate 650 Mg Tablet) 650 mg PO TID [facility] Last Admin: 11/20/23 08:12 Dose: 650 mg Documented By: RUSSEL Sodium Chloride (0.9 % Sodium Chloride Flush 3 Ml Syringe) 3 ml IVFLUSH QSHIFT [facility] Last Admin: 11/20/23 07:37 Dose: Not Given Documented By: RUSSEL Non-Admin Reason: No Access Tacrolimus (Tacrolimus 0.5 Mg Capsule) 1.5 mg PO BEDTIME [facility] Last Admin: 11/19/23 20:55 Dose: 1.5 mg Documented By: SIGRID Tacrolimus (Tacrolimus 1 Mg Capsule) 2 mg PO DAILY [facility] Last Admin: 11/20/23 08:13 Dose: 2 mg Documented By: RUSSEL Labs 11/18/23 05:41 11/19/23 05:55 Labs: Laboratory Results - last 24 hr 11/19/23 11/19/23 11/19/23 05:55 11:06 16:08 MCV Cancelled MCH Cancelled MCHC Cancelled RDW Cancelled Plt Count Cancelled MPV Cancelled Absolute Nucleated RBC Cancelled Nucleated RBC % (auto) Cancelled POC Glucose 283 H 265 H 11/19/23 11/20/23 20:39 07:12 MCV MCH MCHC RDW Plt Count MPV Absolute Nucleated RBC Nucleated RBC % (auto) POC Glucose 335 H 250 H 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 dvt prophylaxis - scd due to possible pud DNR/DNI reason for continued hospitalization:safe dispo Quality Stroke Does the patient have a stroke diagnosis?: No VTE Prior VTE?: Yes VTE Risk Level:: Medical - moderate - high VTE Device Contraindication: N/A - Device Ordered VTE Drug Contraindication: Treatment Not Tolerated
--- NOTE | 2023-11-20 09:55 | HO.SKINPHOTO ---
Location: Left Abdomen Category: Stage: Length: 4cm Width: 3.5cm Depth: cm Location: Category: Stage: Length: Width: Depth: cm Location: Category: Stage: Length: Width: Depth: cm Location: Category: Stage: Length: Width: Depth: cm Location: Category: Stage: Length: Width: Depth: cm Location: Category: Stage: Length: Width: Depth: cm
[2023-11-20 11:26] LABS: Glucose, Whole Blood 339 mg/dL (60-115)
[2023-11-20 15:36] VITALS: BP 121/56; PULSE 69; RESP 18; TEMP 36.4; O2SAT 95
[2023-11-20 16:36] LABS: Glucose, Whole Blood 225 mg/dL (60-115)
[2023-11-20 19:57] VITALS: BP 138/59; PULSE 66; RESP 16; TEMP 36.6; O2SAT 95
[2023-11-20 20:06] LABS: Glucose, Whole Blood 260 mg/dL (60-115)
[2023-11-20] MEDS: Tacrolimus 0.5 MG CAPSULE 1.5 MG PO (20:32)
[2023-11-20] MEDS: Atorvastatin Calcium 40 MG TABLET PO (20:33)
[2023-11-20] MEDS: Insulin Glargine,Hum.rec.anlog 100 UNIT/ML 10 ML VIAL 10 UNIT SUBCUT (20:33)
[2023-11-21 03:40] VITALS: BP 92/44; PULSE 72; RESP 18; TEMP 36.7; O2SAT 97
[2023-11-21] MEDS: Omeprazole 40 MG CAPSULE.DR PO ×2 (05:32→17:14)
[2023-11-21 07:22] VITALS: BP 124/60; PULSE 67; RESP 18; TEMP 36.2; O2SAT 96
[2023-11-21 07:26] LABS: Glucose, Whole Blood 210 mg/dL (60-115)
[2023-11-21] MEDS: Sodium Bicarbonate 650 MG TABLET PO ×3 (08:33→22:08)
[2023-11-21] MEDS: Insulin Lispro 100 UNIT/ML 3 ML VIAL SUBCUT ×4 (08:33→22:08)
[2023-11-21] MEDS: Tacrolimus 1 MG CAPSULE 2 MG PO (08:33)
[2023-11-21] MEDS: carvediloL 25 MG TABLET PO ×2 (08:33→22:08)
--- NOTE | 2023-11-21 09:02 | HO.PM.IMPN ---
Subjective Subjective Date of Service: 11/21/23 Interval History: no abd pain, toelrating solids Physical Exam Vital Signs: Vital Signs: Last Vital Signs Temp 97.1 F 11/21/23 07:22 Pulse 67 11/21/23 07:22 Resp 18 11/21/23 07:22 BP 124/60 11/21/23 07:22 Pulse Ox 96 11/21/23 07:22 O2 Del Method Room Air 11/21/23 07:22 BMI result Body Mass Index 24.3 Const: General: comfortable and no acute distress HEENT: Head: Yes normocephalic Mouth: Normal oral and palatal mucosa present Eyes: EOM: EOMs intact bilaterally Neck: Neck: Yes supple Resp: Auscultation: clear to auscultation bilaterally Cardio: Jugular venous distension: no JVD Rate: regular rate GI: Palpation (GI): Soft to palpation Auscultation: normal bowel sounds : General: Yes no CVA tenderness Back/Spine/Pelvis: Back: no CVA tenderness Skin: General skin exam: no rashes or lesions noted Neuro: General: moves all extremities Objective Data Active Medications Atorvastatin Calcium (Atorvastatin Calcium 40 Mg Tablet) 40 mg PO BEDTIME [facility] Last Admin: 11/20/23 20:33 Dose: 40 mg Documented By: SIGRID Carvedilol (Carvedilol 25 Mg Tablet) 25 mg PO BID [facility]; Protocol Last Admin: 11/21/23 08:33 Dose: 25 mg Documented By: RUSSEL Dextrose (Dextrose 50 % 25 Gm/50 Ml Syringe) 25 gm IVPUSH Q15M PRN; Protocol PRN Reason: per Hypoglycemia Standing Ord. Glucose (Glucose Gel 15 Gm Gel..Gram.) 15 gm PO Q15M PRN; Protocol PRN Reason: per Hypoglycemia Standing Ord. Insulin Glargine (Insulin Glargine,Hum.Rec.Anlog 100 Unit/Ml 10 Ml Vial) 10 unit SUBCUT BEDTIME [facility] Last Admin: 11/20/23 20:33 Dose: 10 unit Documented By: SIGRID Insulin Human Lispro (Insulin Lispro 100 Unit/Ml 3 Ml Vial) 0 unit SUBCUT QIDACHS [facility]; Protocol Last Admin: 11/21/23 08:33 Dose: 4 unit Documented By: RUSSEL Omeprazole (Omeprazole 40 Mg Marisa) 40 mg PO BID@0630,1630 [facility] Last Admin: 11/21/23 05:32 Dose: 40 mg Documented By: SIGRID Sodium Bicarbonate (Sodium Bicarbonate 650 Mg Tablet) 650 mg PO TID [facility] Last Admin: 11/21/23 08:33 Dose: 650 mg Documented By: RUSSEL Sodium Chloride (0.9 % Sodium Chloride Flush 3 Ml Syringe) 3 ml IVFLUSH QSHIFT [facility] Last Admin: 11/21/23 07:24 Dose: Not Given Documented By: RUSSEL Non-Admin Reason: No Access Tacrolimus (Tacrolimus 0.5 Mg Capsule) 1.5 mg PO BEDTIME [facility] Last Admin: 11/20/23 20:32 Dose: 1.5 mg Documented By: SIGRID Tacrolimus (Tacrolimus 1 Mg Capsule) 2 mg PO DAILY [facility] Last Admin: 11/21/23 08:33 Dose: 2 mg Documented By: RUSSEL Labs 11/18/23 05:41 11/19/23 05:55 Labs: Laboratory Results - last 24 hr 11/20/23 11/20/23 11/20/23 11:18 16:27 20:02 POC Glucose 339 H 225 H 260 H 11/21/23 07:23 POC Glucose 210 H 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, hypernatremia differential includes gatric ischemia, vs ephymsematous colitis, vs contained perforated ulcer no sepsis continue ppi po tolerating solids hypernatremia resolved hyperkalemia lokelma, monitor - refusing labs CAD holding asa for possible pud continue statin hfref holding diuretics, monitor for fluid overload DM with hyperlgycemia basal bolus insulin history of DVT xarelto held CKD IIIB, kidney transplant creatinine improved [place] [facility] [place] continue tracrolimus, monitor advanced dementia unspecified appears to be at described new baseline. dvt prophylaxis - scd due to possible pud DNR/DNI reason for continued hospitalization:safe dispo Quality Stroke Does the patient have a stroke diagnosis?: No VTE Prior VTE?: Yes VTE Risk Level:: Medical - moderate - high VTE Device Contraindication: N/A - Device Ordered VTE Drug Contraindication: Treatment Not Tolerated
[2023-11-21 11:09] LABS: Glucose, Whole Blood 222 mg/dL (60-115)
[2023-11-21 15:24] VITALS: BP 118/56; PULSE 70; RESP 18; TEMP 36.4; O2SAT 97
[2023-11-21 16:36] LABS: Glucose, Whole Blood 221 mg/dL (60-115)
[2023-11-21 19:36] VITALS: BP 124/56; PULSE 70; RESP 18; TEMP 36.3; O2SAT 99
[2023-11-21 20:59] LABS: Glucose, Whole Blood 190 mg/dL (60-115)
[2023-11-21] MEDS: Tacrolimus 0.5 MG CAPSULE 1.5 MG PO (22:07)
[2023-11-21] MEDS: Atorvastatin Calcium 40 MG TABLET PO (22:08)
[2023-11-21] MEDS: Insulin Glargine,Hum.rec.anlog 100 UNIT/ML 10 ML VIAL 10 UNIT SUBCUT (22:08)
[2023-11-22 04:00] VITALS: BP 138/60; PULSE 67; RESP 18; TEMP 36; O2SAT 97
[2023-11-22] MEDS: Omeprazole 40 MG CAPSULE.DR PO ×2 (06:16→17:05)
[2023-11-22 07:40] VITALS: BP 141/60; PULSE 68; RESP 16; TEMP 36.2; O2SAT 100
[2023-11-22 07:51] LABS: Glucose, Whole Blood 244 mg/dL (60-115)
[2023-11-22] MEDS: carvediloL 25 MG TABLET PO ×2 (08:29→20:51)
[2023-11-22] MEDS: Tacrolimus 1 MG CAPSULE 2 MG PO (08:29)
[2023-11-22] MEDS: Insulin Lispro 100 UNIT/ML 3 ML VIAL SUBCUT ×4 (08:29→20:40)
[2023-11-22] MEDS: Sodium Bicarbonate 650 MG TABLET PO ×3 (08:29→20:37)
--- NOTE | 2023-11-22 09:02 | P.PNIM_ITS ---
Subjective Subjective Date of Service: 11/22/23 Interval History: no abd pain, tolerating solids Physical Exam 2 Vital Signs: Vital Signs: Last Vital Signs Temp 97.2 F 11/22/23 07:40 Pulse 68 11/22/23 07:40 Resp 16 11/22/23 07:40 BP 141/60 H 11/22/23 07:40 Pulse Ox 100 11/22/23 07:40 O2 Del Method Room Air 11/22/23 07:40 BMI result Body Mass Index 24.3 Const: General: comfortable and no acute distress HEENT: Head: Yes normocephalic Mouth: Normal oral and palatal mucosa present Eyes: EOM: EOMs intact bilaterally Neck: Neck: Yes supple Resp: Auscultation: clear to auscultation bilaterally Cardio: Jugular venous distension: no JVD Rate: regular rate GI: Palpation (GI): Soft to palpation Auscultation: normal bowel sounds : General: Yes no CVA tenderness Back/Spine/Pelvis: Back: no CVA tenderness Skin: General skin exam: no rashes or lesions noted Neuro: General: moves all extremities Objective Data Active Medications Atorvastatin Calcium (Atorvastatin Calcium 40 Mg Tablet) 40 mg PO BEDTIME [facility] Last Admin: 11/21/23 22:08 Dose: 40 mg Documented By: CARSON Carvedilol (Carvedilol 25 Mg Tablet) 25 mg PO BID [facility]; Protocol Last Admin: 11/22/23 08:29 Dose: 25 mg Documented By: KALI Dextrose (Dextrose 50 % 25 Gm/50 Ml Syringe) 25 gm IVPUSH Q15M PRN; Protocol PRN Reason: per Hypoglycemia Standing Ord. Glucose (Glucose Gel 15 Gm Gel..Gram.) 15 gm PO Q15M PRN; Protocol PRN Reason: per Hypoglycemia Standing Ord. Insulin Glargine (Insulin Glargine,Hum.Rec.Anlog 100 Unit/Ml 10 Ml Vial) 10 unit SUBCUT BEDTIME [facility] Last Admin: 11/21/23 22:08 Dose: 10 unit Documented By: CARSON Insulin Human Lispro (Insulin Lispro 100 Unit/Ml 3 Ml Vial) 0 unit SUBCUT QIDACHS [facility]; Protocol Last Admin: 11/22/23 08:29 Dose: 4 unit Documented By: KALI Omeprazole (Omeprazole 40 Mg Capsule.) 40 mg PO BID@0630,1630 [facility] Last Admin: 11/22/23 06:16 Dose: 40 mg Documented By: CARSON Sodium Bicarbonate (Sodium Bicarbonate 650 Mg Tablet) 650 mg PO TID [facility] Last Admin: 11/22/23 08:29 Dose: 650 mg Documented By: KALI Sodium Chloride (0.9 % Sodium Chloride Flush 3 Ml Syringe) 3 ml IVFLUSH QSHIFT [facility] Last Admin: 11/22/23 08:30 Dose: Not Given Documented By: KALI Non-Admin Reason: No Access Tacrolimus (Tacrolimus 0.5 Mg Capsule) 1.5 mg PO BEDTIME [facility] Last Admin: 11/21/23 22:07 Dose: 1.5 mg Documented By: CARSON Tacrolimus (Tacrolimus 1 Mg Capsule) 2 mg PO DAILY [facility] Last Admin: 11/22/23 08:29 Dose: 2 mg Documented By: KALI Labs 11/18/23 05:41 11/19/23 05:55 Labs: Laboratory Results - last 24 hr 11/21/23 11/21/23 11/21/23 11:05 16:21 20:47 POC Glucose 222 H 221 H 190 H 11/22/23 07:09 POC Glucose 244 H Microbiology Microbiology Results: Microbiology 11/16/23 22:05 Blood Culture - Final Blood - Venous No growth after 5 days. 11/16/23 22:05 Blood Culture - Final Blood - Venous No growth after 5 days. 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 dvt prophylaxis - scd due to possible pud DNR/DNI reason for continued hospitalization:safe dispo Quality Stroke Does the patient have a stroke diagnosis?: No VTE Prior VTE?: Yes VTE Risk Level:: Medical - moderate - high VTE Device Contraindication: N/A - Device Ordered VTE Drug Contraindication: Treatment Not Tolerated
--- NOTE | 2023-11-22 10:06 | P.PNNP_ITS ---
Subjective Subjective Date of Service: 11/22/23 Interval history: No abd pain, tolerating solids; No recent labs fro review Physical Exam 2 Vital Signs: Vital Signs: Last Vital Signs Temp 97.2 F 11/22/23 07:40 Pulse 68 11/22/23 07:40 Resp 16 11/22/23 07:40 BP 141/60 H 11/22/23 07:40 Pulse Ox 100 11/22/23 07:40 O2 Del Method Room Air 11/22/23 07:40 BMI result Body Mass Index 24.3 Const: General: comfortable and no acute distress HEENT: Head: Yes normocephalic Mouth: Normal oral and palatal mucosa present Eyes: EOM: EOMs intact bilaterally Neck: Neck: Yes supple Resp: Auscultation: clear to auscultation bilaterally Cardio: Jugular venous distension: no JVD Rate: regular rate GI: Palpation (GI): Soft to palpation Auscultation: normal bowel sounds : General: Yes no CVA tenderness Back/Spine/Pelvis: Back: no CVA tenderness Skin: General skin exam: no rashes or lesions noted Neuro: General: moves all extremities Objective Data Labs 11/18/23 05:41 11/19/23 05:55 Labs: Laboratory Results - last 24 hr 11/21/23 11/21/23 11/21/23 11:05 16:21 20:47 POC Glucose 222 H 221 H 190 H 11/22/23 07:09 POC Glucose 244 H Microbiology Microbiology Results: Microbiology 11/16/23 22:05 Blood - Venous Blood Culture - Final No growth after 5 days. 11/16/23 22:05 Blood - Venous Blood Culture - Final No growth after 5 days. Procedures Date of Service Date of Service: 11/22/23 Assessment & Plan Assessment and plan (1) Acute on chronic kidney failure: Status: Acute Plan CHUN due to tubular injury Has CKD 3B @ baseline( renal transplant) NO reason to suspect GN/AIN Serum creatinine had improved from recent [facility] No labs for review today No change in tacrolimus dosage C/W rest of current management Progress Note: Quality Stroke Does the patient have a stroke diagnosis?: No
--- NOTE | 2023-11-22 10:36 | P.CDIM_ITS ---
PROVIDER RESPONSE TEXT: To clarify, the appropriate diagnosis supported by the clinical indicators: Pressure (decubitus) ulcer: stage II QUERY TEXT: PHYSICIAN'S DOCUMENTATION REQUEST Date of Query: 11/22/2023 10:12 AM EDT Patient Name: Irena Hobson Admit Date: 11/17/2023 Dear Fish Saavedra, A review of the medical record indicates additional documentation may be needed. Please review below and update the documentation accordingly. Clinical Indicators: Per Wound Note 11/18/23: Right buttock stage 2 pressure injury POA Barrier cream for moist wound healing and to protect from friction and moisture Based on the above, could you please provide further information regarding the ulcer/wound: Diabetic ulcer Please specify the location and laterality of the ulcer/wound Venous stasis ulcer Please specify the location and laterality of the ulcer/wound Arterial (ischemic) ulcer Please specify the location and laterality of the ulcer/wound Pressure (decubitus) ulcer Please include the stage of the ulcer and specify the location and laterality of the ulcer/wound Traumatic wound Please specify the location and laterality of the ulcer/wound Other (explain) Clinically unable to determine (explain) Thank you, Cecilia Dawson RN Use of terms such as suspected, likely, concern for, or probable (associated with a specific diagnosi s that is being evaluated, monitored, or treated as if it exists) are acceptable and can be coded in the inpatient se tting, when documented at the time of discharge. Please use your independent medical judgment in providing your response. THIS QUERY IS PART OF THE PERMANENT MEDICAL RECORD
[2023-11-22 11:34] LABS: Glucose, Whole Blood 258 mg/dL (60-115)
--- NOTE | 2023-11-22 11:44 | MHC.CLN ---
Addendum entered by Alisa Orellana, [place] 11/22/23 15:51: PATIENT REFUSING LABS. LAST POTASSIUM 11/18 HIGH (5.4). DX ACUTE ON CHRONIC KIDNEY FAILURE. REC DISCONTINUE SUPPLEMENT DUE HIGH PROTEIN/POTASSIUM CONTENT. ADD LOW POTASSIUM TO DIET ORDER. Original Note: F/U PT WITH INCREASED NUTRITION RISK DUE TO STAGE II PI RIGHT BUTTOCK.. DIET=DIABETIC 1800 KCAL. SUPPLEMENT ENSURE MAX PROTEIN BID. PROVIDES 300 KCALS, 60 PROTEIN. SUPPLEMENT TO PROMOTE WOUND HEALING. PO INTAKE 50-100% AT MEALS. MONITOR PO INTAKE AND ENCOURAGE SUPPLEMENT.
--- NOTE | 2023-11-22 12:45 | MHC.CM.PN ---
Addendum entered by Sharon Castelan RN 11/22/23 14:04: Rec'd phone call from [facility] [employer] Kimberly Orellana ([phone] ext [phone]). Kimberly confirms there is an open case, but is not recommending any change to HCP at this time. Updated Conoly on plan for STR. Kimberly requests to speak w/ MD, message to MD. Original Note: Per MD rounds patient is medically cleared for dc to STR. Pending bed availability at [facility]. This CM sent updates and requested bed availability. Awaiting response.
[2023-11-22 13:48] VITALS: BP 141/60; PULSE 68; O2SAT 100
[2023-11-22 14:59] VITALS: BP 98/46; PULSE 69; RESP 15; TEMP 36.2; O2SAT 98
[2023-11-22 16:16] LABS: Glucose, Whole Blood 190 mg/dL (60-115)
--- NOTE | 2023-11-22 19:33 | PC.NURSE ---
PT refused labs this evening around 1914. KEITH Geller aware.
[2023-11-22 20:00] VITALS: BP 123/60; PULSE 67; RESP 16; TEMP 36.4; O2SAT 100
[2023-11-22 20:09] LABS: Glucose, Whole Blood 202 mg/dL (60-115)
[2023-11-22] MEDS: Tacrolimus 0.5 MG CAPSULE 1.5 MG PO (20:37)
[2023-11-22] MEDS: Atorvastatin Calcium 40 MG TABLET PO (20:37)
[2023-11-22] MEDS: Insulin Glargine,Hum.rec.anlog 100 UNIT/ML 10 ML VIAL 10 UNIT SUBCUT (20:39)
[2023-11-23 02:15] VITALS: BP 132/60; PULSE 78; RESP 18; TEMP 36.5; O2SAT 98
[2023-11-23] MEDS: Melatonin 3 MG TABLET 6 MG PO (03:02)
[2023-11-23] MEDS: Omeprazole 40 MG CAPSULE.DR PO (05:46)
[2023-11-23 06:25] LABS: Alanine Aminotransferase 19 U/L (0-40); Albumin Level 2.7 g/dL (3.5-5.0); Alkaline Phosphatase 70 U/L (39-117); Anion Gap 13 (12-20); Aspartate Amino Transferase 30 U/L (5-37); Bilirubin Direct 0.2 mg/dL (0.0-0.5); Bilirubin Total 0.5 mg/dL (0.0-1.0); Blood Urea Nitrogen 54 mg/dL (9-16); Calcium 9.5 mg/dL (8.4-10.2); Carbon Dioxide 23 mmol/L (22-29); Chloride 107 mmol/L (96-108); Creatinine Clr Calc Pharmacy 31.6; Estimated Glomerular Filt Rate 33; Glucose Fasting 171 mg/dL (60-99); Magnesium 2.2 mg/dL (1.6-2.6); Potassium 4.1 mmol/L (3.3-5.1); Sodium 139 mmol/L (135-145)
[2023-11-23 06:54] LABS: Hematocrit 29.9 % (42.0-52.0); Hemoglobin 9.2 g/dl (14.0-18.0); Mean Corpuscular HGB Conc 30.8 g/dl (31.0-36.0); Mean Corpuscular Volume 71.5 fL (80.0-98.0); PLT ABN DIST 1; Platelet Count 151 X10*3/uL (160-400); Red Blood Count 4.18 X10*6/uL (4.60-5.80); Red Cell Distribution Width 19.9 % (11.0-16.0); White Blood Count 9.5 X10*3/uL (4.8-10.8)
[2023-11-23 07:05] VITALS: BP 116/56; PULSE 65; RESP 16; TEMP 36.3; O2SAT 100
--- NOTE | 2023-11-23 07:18 | P.CDIM_ITS ---
PROVIDER RESPONSE TEXT: To clarify, the appropriate diagnosis supported by the clinical indicators: Diabetic ulcer left heel with eschar QUERY TEXT: PHYSICIAN'S DOCUMENTATION REQUEST Date of Query: 11/23/2023 07:01 AM EDT Patient Name: Irena Hobson Admit Date: 11/17/2023 Dear Fish Saavedra, A review of the medical record indicates additional documentation may be needed. Please review below and update the documentation accordingly. 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 Arterial (ischemic) ulcer Please specify the severity of the ulcer/wound Pressure (decubitus) ulcer Please include the stage of the ulcer and specify the location and laterality of the ulcer/wound Traumatic wound Please specify the location and laterality of the ulcer/wound Diabetic ulcer left heel with eschar Other (explain) Clinically unable to determine (explain) Thank you, Cecilia Dawson RN Use of terms such as suspected, likely, concern for, or probable (associated with a specific diagnosi s that is being evaluated, monitored, or treated as if it exists) are acceptable and can be coded in the inpatient se tting, when documented at the time of discharge. Please use your independent medical judgment in providing your response. THIS QUERY IS PART OF THE PERMANENT MEDICAL RECORD
[2023-11-23 07:21] LABS: Glucose, Whole Blood 180 mg/dL (60-115)
--- NOTE | 2023-11-23 07:27 | P.CDIM_ITS ---
PROVIDER RESPONSE TEXT: To clarify, the appropriate diagnosis supported by the clinical indicators: left heel stage 1 pressure injury QUERY TEXT: PHYSICIAN'S DOCUMENTATION REQUEST Date of Query: 11/23/2023 07:08 AM EDT Patient Name: Irena Hobson Admit Date: 11/17/2023 Dear Fish Saavedra, A review of the medical record indicates additional documentation may be needed. Please review below and update the documentation accordingly. Clinical Indicators: Per Wound Note 10/23/23: left heel stage 1 pressure injury, POA red intact nonblanchable tissue Treatment: Skin prep to protect from friction and off load heels from surface of bed Based on the above, could you clarify the appropriate diagnosis, if significant, that supports the ab ove abnormalities and additional evaluation, monitoring, and/or treatment rendered: left heel stage 1 pressure injury Other (explain) Clinically unable to determine (explain) Thank you, Cecilia Dawson RN Use of terms such as suspected, likely, concern for, or probable (associated with a specific diagnosi s that is being evaluated, monitored, or treated as if it exists) are acceptable and can be coded in the inpatient se tting, when documented at the time of discharge. Please use your independent medical judgment in providing your response. THIS QUERY IS PART OF THE PERMANENT MEDICAL RECORD
[2023-11-23] MEDS: Insulin Lispro 100 UNIT/ML 3 ML VIAL SUBCUT ×2 (08:12→11:48)
[2023-11-23] MEDS: Tacrolimus 1 MG CAPSULE 2 MG PO (08:12)
[2023-11-23] MEDS: Sodium Bicarbonate 650 MG TABLET PO (08:13)
[2023-11-23] MEDS: carvediloL 25 MG TABLET PO (08:13)
--- NOTE | 2023-11-23 09:20 | P.PNIM_ITS ---
Subjective Subjective Date of Service: 11/23/23 Interval History: upper extremity swellling Physical Exam 2 Vital Signs: Vital Signs: Last Vital Signs Temp 97.4 F 11/23/23 07:05 Pulse 65 11/23/23 07:05 Resp 16 11/23/23 07:05 BP 116/56 L 11/23/23 07:05 Pulse Ox 100 11/23/23 07:05 O2 Del Method Room Air 11/23/23 07:05 BMI result Body Mass Index 24.3 Const: Other: bilateral upper extremity swelling General: comfortable and no acute distress HEENT: Head: Yes normocephalic Mouth: Normal oral and palatal mucosa present Eyes: EOM: EOMs intact bilaterally Neck: Neck: Yes supple Resp: Auscultation: clear to auscultation bilaterally Cardio: Jugular venous distension: no JVD Rate: regular rate GI: Palpation (GI): Soft to palpation Auscultation: normal bowel sounds : General: Yes no CVA tenderness Back/Spine/Pelvis: Back: no CVA tenderness Skin: General skin exam: no rashes or lesions noted Neuro: General: moves all extremities Objective Data Active Medications Atorvastatin Calcium (Atorvastatin Calcium 40 Mg Tablet) 40 mg PO BEDTIME [facility] Last Admin: 11/22/23 20:37 Dose: 40 mg Documented By: OLEKSANDR Carvedilol (Carvedilol 25 Mg Tablet) 25 mg PO BID [facility]; Protocol Last Admin: 11/23/23 08:13 Dose: 25 mg Documented By: KALI Dextrose (Dextrose 50 % 25 Gm/50 Ml Syringe) 25 gm IVPUSH Q15M PRN; Protocol PRN Reason: per Hypoglycemia Standing Ord. Furosemide (Furosemide 40 Mg Tablet) 40 mg PO DAILY [facility]; Protocol Glucose (Glucose Gel 15 Gm Gel..Gram.) 15 gm PO Q15M PRN; Protocol PRN Reason: per Hypoglycemia Standing Ord. Insulin Glargine (Insulin Glargine,Hum.Rec.Anlog 100 Unit/Ml 10 Ml Vial) 10 unit SUBCUT BEDTIME [facility] Last Admin: 11/22/23 20:39 Dose: 10 unit Documented By: OLEKSANDR Insulin Human Lispro (Insulin Lispro 100 Unit/Ml 3 Ml Vial) 0 unit SUBCUT QIDACHS [facility]; Protocol Last Admin: 11/23/23 08:12 Dose: 2 unit Documented By: KALI Melatonin (Melatonin 3 Mg Tablet) 6 mg PO BEDTIME PRN PRN Reason: Insomnia Last Admin: 11/23/23 03:02 Dose: 6 mg Documented By: OLEKSANDR Omeprazole (Omeprazole 40 Mg Capsule.) 40 mg PO BID@0630,1630 [facility] Last Admin: 11/23/23 05:46 Dose: 40 mg Documented By: OLEKSANDR Sodium Bicarbonate (Sodium Bicarbonate 650 Mg Tablet) 650 mg PO TID [facility] Last Admin: 11/23/23 08:13 Dose: 650 mg Documented By: KALI Sodium Chloride (0.9 % Sodium Chloride Flush 3 Ml Syringe) 3 ml IVFLUSH QSHIFT [facility] Last Admin: 11/23/23 08:12 Dose: Not Given Documented By: KALI Non-Admin Reason: No Access Tacrolimus (Tacrolimus 0.5 Mg Capsule) 1.5 mg PO BEDTIME [facility] Last Admin: 11/22/23 20:37 Dose: 1.5 mg Documented By: OLEKSANDR Tacrolimus (Tacrolimus 1 Mg Capsule) 2 mg PO DAILY [facility] Last Admin: 11/23/23 08:12 Dose: 2 mg Documented By: KALI Labs 11/23/23 05:25 11/23/23 05:25 Labs: Laboratory Results - last 24 hr 11/22/23 11/22/23 11/22/23 11:30 16:08 20:05 MCV MCH MCHC RDW Plt Count MPV Absolute Nucleated RBC Nucleated RBC % (auto) Anion Gap Estim Creat Clear Calc Estimated GFR POC Glucose 258 H 190 H 202 H Fasting Glucose Calcium Magnesium Total Bilirubin Direct Bilirubin AST ALT Alkaline Phosphatase Total Protein Albumin 11/23/23 11/23/23 05:25 07:09 MCV 71.5 L MCH 22.0 L MCHC 30.8 L RDW 19.9 H Plt Count 151 L MPV Not Reportable Absolute Nucleated RBC 0.000 Nucleated RBC % (auto) 0.0 Anion Gap 13 Estim Creat Clear Calc 31.6 Estimated GFR 33 POC Glucose 180 H Fasting Glucose 171 H Calcium 9.5 Magnesium 2.2 Total Bilirubin 0.5 Direct Bilirubin 0.2 AST 30 ALT 19 Alkaline Phosphatase 70 Total Protein 6.0 L Albumin 2.7 L 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, hypernatremia differential includes gatric ischemia, vs ephymsematous colitis, vs contained perforated ulcer no sepsis continue ppi po tolerating solids hypernatremia resolved hyperkalemia resolved bilateral upper extremity swelling suspect mostly 3rd spacing from hypoalbuminemia rule out dvt CAD holding asa for possible pud continue statin hfref will start maintence lasix DM with hyperlgycemia basal bolus insulin history of DVT xarelto held CKD IIIB, kidney transplant creatinine improved from recent [facility] admission continue tracrolimus, monitor advanced dementia unspecified appears to be at described new baseline. dvt prophylaxis - scd due to possible pud DNR/DNI reason for continued hospitalization:safe dispo Quality Stroke Does the patient have a stroke diagnosis?: No VTE Prior VTE?: Yes VTE Risk Level:: Medical - moderate - high VTE Device Contraindication: N/A - Device Ordered VTE Drug Contraindication: Treatment Not Tolerated
[2023-11-23] MEDS: Furosemide 40 MG TABLET PO (09:37)
--- NOTE | 2023-11-23 11:07 | PM.DS ---
DS: Providers Provider Date of Service: 11/23/23 Date of admission: 11/17/23 08:30 Primary care physician: Moises Saldivar MD Consults: 11/17/23 06:24 Consult to General Surgery Stat Consulting Provider: Steffi Conner Reason for consultation: gastric wall emphysema Has provider been notified: Yes 11/17/23 23:06 Consult to Wound Care Routine Reason for consultation: pressure injury right buttock - stage II, scabs to right great & 2nd toes. 11/19/23 07:57 Consult to Nephrology Routine Consulting Provider: [facility] Reason for consultation: ckd, hyperk, acidosis, transplant 11/20/23 10:15 Consult to Wound Care Routine Reason for consultation: open wound to left lower abdomen DS: Diagnosis Discharge Diagnosis (1) Abnormal CT scan, gastrointestinal tract: Status: Acute DS: Summary Hospital Course Hospital Course: from initial hpi: 73M PMH CAD s/p cabg, hfref EF 30%, DM, CKD IIIB, kidney transplant status, history of DVT on xarelto, renal artery stenosis of transplant kidney, advanced dementia presented with ams. patient recently discharged week ptp from [facility] after hospitalization for fall, hyperglycemia, chun, delerium. patient was at [facility], noted to be lethargic and confused. labs at [facility] found leukocystotis, hypernatremia so sent to ED. in ED ct showed gastric emphysema and colitis. patient denies any complaints himself. hospital course: Patient was admitted for acute metabolic encephalopathy due to gastric emphysema, hypernatremia. Differential included gastric ischemia, emphysematous colitis, contained perforated ulcer. His aspirin was held, was given IV PPI. Diet was slowly advanced and he is tolerating solids. Was given D5W and hypernatremia resolved. Patient's mental status is back to baseline. Course complicated by hyperkalemia which resolved with Lokelma. For coronary disease aspirin is on hold for about 7 days for possible peptic ulcer disease. Was continued on statin. For chronic systolic CHF patient is started on Lasix for maintenance. He is noted to have some anasarca due to 3rd spacing and hypoalbuminemia, upper extremity doppler negative for DVT.. Nutrition is recommended and will continue with Lasix. For diabetes with hyperglycemia was treated with basal bolus insulin. For history of DVTs Xarelto was held for suspected GI bleed. Can be restarted on discharge. For CKD IIIb status post kidney transplant creatinine continued to improve from recent CHUN was continued on tacrolimus. For unspecified dementia he appears to be at his new baseline. Patient will be [facility]. Time Attestation Discharge Coordination Time (in mins): 35 Quality: Safe Use of Opioids Does Pt have an Active Cancer Diagnosis on the Problem List?: No Quality: Stroke Does the patient have a stroke diagnosis?: No Physical Exam Vital Signs: Vital Signs: Last Vital Signs Temp 97.4 F 11/23/23 07:05 Pulse 65 11/23/23 07:05 Resp 16 11/23/23 07:05 BP 116/56 L 11/23/23 07:05 Pulse Ox 100 11/23/23 07:05 O2 Del Method Room Air 11/23/23 07:05 BMI result Body Mass Index 24.3 Const: Other: bilateral upper extremity swelling General: comfortable and no acute distress HEENT: Head: Yes normocephalic Mouth: Normal oral and palatal mucosa present Eyes: EOM: EOMs intact bilaterally Neck: Neck: Yes supple Resp: Auscultation: clear to auscultation bilaterally Cardio: Jugular venous distension: no JVD Rate: regular rate GI: Palpation (GI): Soft to palpation Auscultation: normal bowel sounds : General: Yes no CVA tenderness Back/Spine/Pelvis: Back: no CVA tenderness Skin: General skin exam: no rashes or lesions noted Neuro: General: moves all extremities DS: Data Data Completed and Pending Labs on day of discharge: Laboratory Results - last 24 hr 11/22/23 11/22/23 11/22/23 11:30 16:08 20:05 WBC RBC Hgb Hct MCV MCH MCHC RDW Plt Count MPV Absolute Nucleated RBC Nucleated RBC % (auto) Sodium Potassium Chloride Carbon Dioxide Anion Gap BUN Creatinine Estim Creat Clear Calc Estimated GFR POC Glucose 258 H 190 H 202 H Fasting Glucose Calcium Magnesium Total Bilirubin Direct Bilirubin AST ALT Alkaline Phosphatase Total Protein Albumin 11/23/23 11/23/23 05:25 07:09 WBC 9.5 RBC 4.18 L Hgb 9.2 L Hct 29.9 L MCV 71.5 L MCH 22.0 L MCHC 30.8 L RDW 19.9 H Plt Count 151 L MPV Not Reportable Absolute Nucleated RBC 0.000 Nucleated RBC % (auto) 0.0 Sodium 139 Potassium 4.1 D Chloride 107 Carbon Dioxide 23 Anion Gap 13 BUN 54 H Creatinine 2.01 H Estim Creat Clear Calc 31.6 Estimated GFR 33 POC Glucose 180 H Fasting Glucose 171 H Calcium 9.5 Magnesium 2.2 Total Bilirubin 0.5 Direct Bilirubin 0.2 AST 30 ALT 19 Alkaline Phosphatase 70 Total Protein 6.0 L Albumin 2.7 L Discharge Plan Discharge Anticipated Discharge Date/Time: 11/23/23 11:04 Patient Disposition: Xfer SNF Discharge Diagnosis: PUD, ckd, edema Referrals: [facility] [Outside] - 1 Day (continue short term rehab) Moises Saldivar MD [Primary Care Provider] - 1 Week Discharge Medications: New furosemide 40 mg Tablet 40 mg PO DAILY Qty: 0 0RF Protocol: Hold for SBP< HOLD for SBP < : 90 omeprazole 40 mg Capsule,Delayed Release(Dr/Ec) 40 mg PO BID@0630,1630 Qty: 0 0RF rivaroxaban 15 mg tablet 15 mg PO QPM Qty: 30 0RF Rx Instructions: must administer with evening meal Continued atorvastatin 40 mg tablet 40 mg PO BEDTIME carvedilol 25 mg tablet 25 mg PO BID sennosides [senna] 8.6 mg Tablet 17.2 mg PO DAILY acetaminophen 325 mg Tablet 975 mg PO TID trazodone 50 mg Tablet 25 mg PO BEDTIME PRN (Reason: Insomnia) tacrolimus 0.5 mg capsule 1.5 mg PO BEDTIME tacrolimus 0.5 mg capsule 2 mg PO DAILY insulin aspart U-100 [Novolog FlexPen U-100 Insulin] 100 unit/mL (3 mL) insulin pen 0 sliding scale dose subcut QIDACHS Protocol: Insulin Correction Scale Less than or equal to 110 ---- Give (units): 0 111 to 150 Give (units): 0 151 to 200 Give (units): 2 201 to 250 Give (units): 4 251 to 300 Give (units): 6 301 to 350 Give (units): 8 Greater than 350 Give (units): 10 Call MD if Blood Glucose > : 350 lactulose 10 gram/15 mL solution 10 g PO DAILY PRN (Reason: Constipation) insulin glargine [Lantus Solostar U-100 Insulin] 100 unit/mL (3 mL) insulin pen 10 unit subcut BEDTIME Held aspirin 81 mg Tablet,Chewable 81 mg PO DAILY Hold Instructions: Resume on 11/29/23. Discontinued pantoprazole 20 mg tablet,delayed release (DR/EC) 20 mg PO DAILY Discharge Orders: Discharge Order (Routine); Ordered 11/23/23 Ordered By: Fish Saavedra Diet: Advance to usual diet Activity on Discharge: As tolerated Stand Alone Forms: Patient Portal Discharge page Care Plan Goals: recovery Health Concerns: suspected PUD, dementia, fluid overload from thrid spacing Plan of Treatment: [facility] ppi Assessment: see above
--- NOTE | 2023-11-23 11:34 | MHC.CM.PN ---
Patient medically cleared for dc back to [facility]. [facility] has accepted. BLS transportation scheduled for 3pm. , RN and /HCP aware. IMM verbally delivered to . Copy left at bedside per request.
[2023-11-23 11:43] LABS: Glucose, Whole Blood 167 mg/dL (60-115)
--- NOTE | 2023-11-23 12:43 | P.PNNP_ITS ---
Subjective Subjective Date of Service: 11/23/23 Interval history: Has upper extremity swellling; Serum creatinine improving Physical Exam 2 Vital Signs: Vital Signs: Last Vital Signs Temp 97.4 F 11/23/23 07:05 Pulse 65 11/23/23 07:05 Resp 16 11/23/23 07:05 BP 116/56 L 11/23/23 07:05 Pulse Ox 100 11/23/23 07:05 O2 Del Method Room Air 11/23/23 07:05 BMI result Body Mass Index 24.3 Const: General: comfortable and no acute distress HEENT: Head: Yes normocephalic Mouth: Normal oral and palatal mucosa present Eyes: EOM: EOMs intact bilaterally Neck: Neck: Yes supple Resp: Auscultation: clear to auscultation bilaterally Cardio: Jugular venous distension: no JVD Rate: regular rate GI: Palpation (GI): Soft to palpation Auscultation: normal bowel sounds : General: Yes no CVA tenderness Back/Spine/Pelvis: Back: no CVA tenderness Skin: General skin exam: no rashes or lesions noted Neuro: General: moves all extremities Objective Data Labs 11/23/23 05:25 11/23/23 05:25 Labs: Laboratory Results - last 24 hr 11/22/23 11/22/23 11/23/23 16:08 20:05 05:25 WBC 9.5 RBC 4.18 L Hgb 9.2 L Hct 29.9 L MCV 71.5 L MCH 22.0 L MCHC 30.8 L RDW 19.9 H Plt Count 151 L MPV Not Reportable Absolute Nucleated RBC 0.000 Nucleated RBC % (auto) 0.0 Sodium 139 Potassium 4.1 D Chloride 107 Carbon Dioxide 23 Anion Gap 13 BUN 54 H Creatinine 2.01 H Estim Creat Clear Calc 31.6 Estimated GFR 33 POC Glucose 190 H 202 H Fasting Glucose 171 H Calcium 9.5 Magnesium 2.2 Total Bilirubin 0.5 Direct Bilirubin 0.2 AST 30 ALT 19 Alkaline Phosphatase 70 Total Protein 6.0 L Albumin 2.7 L 11/23/23 11/23/23 07:09 11:36 WBC RBC Hgb Hct MCV MCH MCHC RDW Plt Count MPV Absolute Nucleated RBC Nucleated RBC % (auto) Sodium Potassium Chloride Carbon Dioxide Anion Gap BUN Creatinine Estim Creat Clear Calc Estimated GFR POC Glucose 180 H 167 H Fasting Glucose Calcium Magnesium Total Bilirubin Direct Bilirubin AST ALT Alkaline Phosphatase Total Protein Albumin Microbiology Microbiology Results: Microbiology 11/16/23 22:05 Blood - Venous Blood Culture - Final No growth after 5 days. 11/16/23 22:05 Blood - Venous Blood Culture - Final No growth after 5 days. Procedures Date of Service Date of Service: 11/23/23 Assessment & Plan Assessment and plan (1) Acute on chronic kidney failure: Status: Acute Plan CHUN due to tubular injury( resolving) Has CKD 3B @ baseline( renal transplant) NO reason to suspect GN/AIN Serum creatinine had improved from recent [facility] No change in tacrolimus dosage C/W rest of current management Progress Note: Quality Stroke Does the patient have a stroke diagnosis?: No
--- NOTE | 2023-11-23 15:10 | PC.NURSE ---
Pt's gold ring was taken off his finger due to edema. Ring was put in a sealed envelope ready to put in safe but pt. was getting discharged, so the envelope with the ring inside was given to the EMS personnel.
== END 2023-11-23 15:12 | disposition skilled nursing facility (03) | DRG 380 ==
LOC: HO.ED 11-17 00:02 → HO.EDOVER 11-17 08:33 → HO.S3 11-17 20:45
PROVIDERS: Emergency Medicine Emergency Medical Services; Admitting Provider Internal Medicine; Emergency Provider Student in an Organized Health Care Education/Training Program; PCP Family Medicine; Visit Provider Internal Medicine
DX: K25.5 Chronic or unspecified gastric ulcer with perforation (principal); G93.41 Metabolic encephalopathy; N17.0 Acute kidney failure with tubular necrosis; T86.12 Kidney transplant failure; I50.22 Chronic systolic (congestive) heart failure; E87.0 Hyperosmolality and hypernatremia; T76.91XA Unspecified adult maltreatment, suspected, initial encounter; E11.65 Type 2 diabetes mellitus with hyperglycemia; K52.89 Other specified noninfective gastroenteritis and colitis; L89.312 Pressure ulcer of right buttock, stage 2; F03.90 Unspecified dementia, unspecified severity, without behavioral disturbance, psychotic disturbance, mood disturbance, and anxiety; E87.5 Hyperkalemia; D63.1 Anemia in chronic kidney disease; Z66 Do not resuscitate; L89.621 Pressure ulcer of left heel, stage 1; I25.10 Atherosclerotic heart disease of native coronary artery without angina pectoris; N18.32 Chronic kidney disease, stage 3b; Z95.1 Presence of aortocoronary bypass graft; Z74.01 Bed confinement status; Z79.4 Long term (current) use of insulin; Z79.621 Long term (current) use of calcineurin inhibitor; Z79.899 Other long term (current) drug therapy
CPT/HCPCS: 36415; 70450; 71045; 71250; 74176; 80048; 80053; 80076; 81001; 82140; 82947; 83605; 83690; 83735; 85025; 85027; 85610; 85730; 87040; 93005; 93970; 97162; 97530; 99285; C9113; J0696; J2543

== ENCOUNTER → 2023-11-16 15:37 | Outpatient (BNV) | payer MEDICARE, SELFPAY | PROVIDERS: Emergency Provider Student in an Organized Health Care Education/Training Program; PCP Family Medicine; Visit Provider Internal Medicine Cardiovascular Disease | DX: R41.82 Altered mental status, unspecified (principal) | CPT/HCPCS: 93010 ==

== ENCOUNTER → 2023-11-17 08:30 | Outpatient (BNV) | payer MEDICARE, SELFPAY | PROVIDERS: Admitting Provider Internal Medicine; Emergency Provider Student in an Organized Health Care Education/Training Program; PCP Family Medicine; Visit Provider Surgery | DX: R93.3 Abnormal findings on diagnostic imaging of other parts of digestive tract (principal) | CPT/HCPCS: 99232; 99499 ==

== ENCOUNTER → 2023-11-17 08:30 | Outpatient (BNV) | payer MEDICARE, SELFPAY | PROVIDERS: Admitting Provider Internal Medicine; Emergency Provider Student in an Organized Health Care Education/Training Program; PCP Family Medicine; Visit Provider Internal Medicine | DX: R93.3 Abnormal findings on diagnostic imaging of other parts of digestive tract (principal) | CPT/HCPCS: 99223; 99231; 99232; 99233; 99239; 99499 ==

== ENCOUNTER → 2023-11-17 08:30 | Outpatient (BNV) | payer MEDICARE, SELFPAY | PROVIDERS: Admitting Provider Internal Medicine; Emergency Provider Student in an Organized Health Care Education/Training Program; PCP Family Medicine; Visit Provider Internal Medicine Nephrology | DX: N17.0 Acute kidney failure with tubular necrosis (principal); N18.32 Chronic kidney disease, stage 3b | CPT/HCPCS: 99223; 99232 ==

== ENCOUNTER 2023-11-30 16:44 | Inpatient (IN) | payer MEDICARE, SELFPAY ==
--- NOTE | ~2023-11-30 | XR_ITS ---
EXAMINATION: XR CHEST CLINICAL INFORMATION: CHF. COMPARISON: Most recent chest CT dated 11/17/2023. TECHNIQUE: Frontal view of the chest was obtained. FINDINGS: Trace left sided pleural effusion, decreased when compared to the prior examination. No right-sided pleural effusion. No pneumothorax. No new airspace consolidation. Stable cardiomediastinal silhouette. Sternal wires and mediastinal surgical clips are redemonstrated. Left chest wall pacer/AICD with its leads in the right heart. Left upper arm vascular clips. XR/XR chest 1V IMPRESSION: Trace left-sided pleural effusion, decreased when compared to the prior examination. No new airspace consolidation.
--- NOTE | ~2023-11-30 | XR_ITS ---
EXAMINATION: XR CHEST CLINICAL INFORMATION: Reason for Exam sob COMPARISON: Chest radiograph 11/30/2023 TECHNIQUE: One view of the chest FINDINGS: Lines and tubes: Median sternotomy wires and mediastinal surgical clips. Left chest wall 3-lead cardiac pacemaker/AICD in similar alignment. Left axillary surgical clips. Clear lungs. No pleural effusion. No pneumothorax. Unchanged cardiomediastinal silhouette. XR/XR chest 1V IMPRESSION: 1. Clear lungs.
--- NOTE | 2023-11-30 16:52 | ED_ITS ---
HPI - General Adult General Chief complaint: General Medical Stated complaint: FLUID RETENTION, FROM SNF Time Seen by Provider: 11/30/23 16:51 Source: patient History of Present Illness HPI narrative: 73 years old with history of multiple comorbid condition coronary disease status post CABG heart failure diabetes CKD status post kidney transplant DVT on Xarelto just discharged from the hospital on 11/23/2023 comes back as noticed to have fluid retention patient has gained about 20 lb in last 2 weeks patient's group home does not ambulate much denies any chest pain or significant shortness of breath just feel weak Related Data Home Medications ?Medication ?Instructions ?Recorded ?Confirmed acetaminophen 325 mg tablet 975 mg PO TID 11/16/23 11/30/23 aspirin 81 mg chewable tablet 81 mg PO DAILY 11/16/23 11/30/23 atorvastatin 40 mg tablet 40 mg PO BEDTIME 11/16/23 11/30/23 carvedilol 25 mg tablet 25 mg PO BID 11/16/23 11/30/23 insulin aspart U-100 100 unit/mL 0 sliding scale dose subcut TIDAC 11/16/23 11/30/23 (3 mL) subcutaneous pen (Novolog FlexPen U-100 Insulin aspart) insulin glargine 100 unit/mL (3 10 unit subcut BEDTIME 11/16/23 11/30/23 mL) subcutaneous pen (Lantus Solostar U-100 Insulin) lactulose 10 gram/15 mL oral 10 g PO DAILY PRN Constipation 11/16/23 11/30/23 solution sennosides 8.6 mg tablet (senna) 17.2 mg PO DAILY 11/16/23 11/30/23 tacrolimus 0.5 mg capsule, 1.5 mg PO BEDTIME 11/16/23 11/30/23 immediate-release tacrolimus 0.5 mg capsule, 2 mg PO DAILY@0900 11/16/23 11/30/23 immediate-release trazodone 50 mg tablet 25 mg PO BEDTIME PRN Insomnia 11/16/23 11/30/23 Previous Rx's ?Medication ?Instructions ?Recorded furosemide 40 mg tablet 40 mg PO DAILY #0 tabs 11/23/23 omeprazole 40 mg capsule,delayed 40 mg PO BID@0630,1630 #0 caps 11/23/23 release rivaroxaban 15 mg tablet 15 mg PO QPM #30 tabs 11/23/23 Allergies Allergy/AdvReac Type Severity Reaction Status Date / Time No Known Allergies Allergy Verified 11/30/23 17:01 Review of Systems 2 Review of Systems: Yes all other systems are reviewed and are negative [facility] Past Medical History Medical History Acute on chronic kidney failure Anasarca Acute CHF Hyperglycemia due to diabetes mellitus Abnormal CT scan, gastrointestinal tract Social History Social History Household Members: None Housing: House Do you presently have visiting nurse or other home services: Yes Patient Tobacco Use Status: Never used Tobacco Smoked in Last 30 Days: No Use of substances other than those prescribed or required for medical reasons: No Advance Directives: Yes Advance Directives on File: Yes Advance Directives Date on File: 11/16/23 service: No Physical Exam ED Vital Signs: Vital Signs - 24 hr 11/30/23 16:58 11/30/23 18:48 Temperature 97.8 F Pulse Rate 76 69 Respiratory Rate 18 12 Blood Pressure 142/59 H 122/41 L Pulse Oximetry 98 98 Oxygen Delivery Method Room Air Room Air BMI result Body Mass Index 29.3 Appearance: Alert. Oriented X3. No acute distress. Generalized anasarca Eyes: PERRLA, No Nystagmus ENT: Pharynx normal. Oral Mucosa moist Neck: Normal inspection. Neck supple. CVS: Normal heart rate and rhythm. Pulses normal. Respiratory: No respiratory distress. Equal air entry bilateral, no wheezing/rales/rhonchi Abdomen: Soft and nontender. Bowel sounds are present, no mass palpable, no CVA tenderness Skin: Skin warm and dry. Normal skin color. Normal skin turgor. Extremities: 3+ lower extremity edema. No calf tenderness Neuro: Oriented X 3. No motor deficit. No sensory deficit.No cerebellar signs , cranial nerves II-XII intact Medications Administered Generic Name Dose Route Start Last Admin Trade Name Freq PRN Reason Stop Dose Admin Insulin Glargine 7 unit 11/30/23 21:00 11/30/23 20:44 Insulin Glargine,Hum.Rec.Anlog 100 Unit/Ml 10 Ml Vial SUBCUT 7 unit BEDTIME [facility] Administration Insulin Human Lispro 0 unit 11/30/23 21:00 11/30/23 20:44 Insulin Lispro 100 Unit/Ml 3 Ml Vial SUBCUT 4 unit QIDACHS [facility] Administration Protocol Tacrolimus 1.5 mg 11/30/23 22:25 11/30/23 22:40 Tacrolimus 0.5 Mg Capsule PO 1.5 mg BEDTIME NELSON Administration Discontinued Medications Generic Name Dose Route Start Last Admin Trade Name Kathe PRN Reason Stop Dose Admin Bumetanide 2 mg 11/30/23 17:15 11/30/23 18:01 Bumetanide 1 Mg/4 Ml Vial IVPUSH 11/30/23 17:16 2 mg ONCE ONE Administration Protocol Lidocaine HCl 10 ml 11/30/23 17:27 11/30/23 17:42 Lidocaine Hcl 2 % Urojet 10 Ml Jel.Pf.[facility]ley TOPICAL 11/30/23 17:28 10 ml ONCE ONE Administration Medical Decision Making Medical Decision Making [facility] Narrative: Patient with congestive heart failure with fluid retention with 20 lb weight gain in last 2 weeks will admit patient for IV diuretic treatment started on Bumex will admit patient for slow diuresis Differential Diagnosis Differential Diagnoses: The differential diagnosis associated with the presentation includes Congestive heart failure/flud overload Admission/Observation Consideration of admission/observation: Escalation of care including admission/observation considered Consult Healthcare Provider Management of the patient was discussed with: Hospitalist Lab Data [facility] Lab Attestation statement: I reviewed the patient's lab results. 11/30/23 17:11 11/30/23 17:11 Labs: Lab Results 11/30/23 Range/Units 17:11 WBC 5.5 (4.8-10.8) X10*3/uL RBC 4.06 L (4.60-5.80) X10*6/uL Hgb 9.1 L (14.0-18.0) g/dl Hct 29.8 L (42.0-52.0) % MCV 73.4 L (80.0-98.0) fL MCH 22.4 L (27.0-33.0) pg MCHC 30.5 L (31.0-36.0) g/dl RDW 21.9 H (11.0-16.0) % Plt Count 152 L (160-400) X10*3/uL MPV Not Reportable Immature Gran % (Auto) 0.4 (0.0-0.4) % Neut % (Auto) 56.6 (45-73) % Lymph % (Auto) 21.7 (20-40) % [place] % (Auto) 15.2 H (2-11) % Eos % (Auto) 5.5 H (0-4) % Baso % (Auto) 0.6 (0-2) % Lymph # (Auto) 1.2 (1.2-4.9) X10*3/uL [place] # (Auto) 0.8 (0.1-1.2) X10*3/uL Eos # (Auto) 0.3 (0.0-0.4) X10*3/uL Baso # (Auto) 0.0 (0.0-0.2) X10*3/uL Abs Immat Gran (auto) 0.02 (0.00-0.03) X10*3/uL Absolute Neuts (auto) 3.1 (2.0-8.3) x10*3/uL Absolute Nucleated RBC 0.000 (0.0-0.012) X10*3/uL Nucleated RBC % (auto) 0.0 (0.0-0.2) /100WBC Smear Tech's Comments VERIFIED PT 15.6 H D (11.1-13.3) SEC INR 1.3 H (0.9-1.1) APTT 39.9 H (26.0-36.8) SEC Sodium 138 (135-145) mmol/L Potassium 4.6 (3.3-5.1) mmol/L Chloride 109 H (96-108) mmol/L Carbon Dioxide 23 (22-29) mmol/L Anion Gap 11 L (12-20) BUN 42 H (9-16) mg/dL Creatinine 1.91 H (0.5-1.4) mg/dL Estim Creat Clear Calc 35.8 Estimated GFR 35 Random Glucose 204 H (60-115) mg/dL Calcium 9.3 (8.4-10.2) mg/dL Magnesium 1.7 (1.6-2.6) mg/dL Total Bilirubin 0.6 (0.0-1.0) mg/dL AST 21 (5-37) U/L ALT 15 (0-40) U/L Alkaline Phosphatase 85 (39-117) U/L Troponin I High Sens 21.9 (<3.5-35.0) ng/L B-Natriuretic Peptide 1644 H (<100) pg/mL Total Protein 6.4 L (6.5-8.0) g/dL Albumin 3.1 L (3.5-5.0) g/dL Independent Interpretation I performed an independent interpretation of an: EKG Discharge Plan Discharge Patient Disposition: Admitted As Inpatient Interventions: Admission Worksheet (ED) Last Done: 11/30/23 22:33
[2023-11-30 16:58] VITALS: BP 128/64; BP 142/59; PULSE 60; PULSE 76; RESP 18; TEMP 36.6; O2SAT 98; O2SAT 99; BMI 29.3
[2023-11-30 17:19] LABS: Eosinophils Absolute Auto 0.3 X10*3/uL (0.0-0.4); SCAN SMEAR FLAG 1
[2023-11-30 17:21] LABS: Basophils Percent Auto 0.6 % (0-2); Eosinophils Percent Auto 5.5 % (0-4); Hematocrit 29.8 % (42.0-52.0); Hemoglobin 9.1 g/dl (14.0-18.0); Imm Gran Abs Auto 0.02 X10*3/uL (0.00-0.03); Imm Gran Pct Auto 0.4 % (0.0-0.4); Lymphocytes Absolute Auto 1.2 X10*3/uL (1.2-4.9); Lymphocytes Percent Auto 21.7 % (20-40); MANUAL DIFF FLAG SCAN; Mean Corpuscular HGB Conc 30.5 g/dl (31.0-36.0); Mean Corpuscular Hemoglobin 22.4 pg (27.0-33.0); Mean Corpuscular Volume 73.4 fL (80.0-98.0); Monocytes Absolute Auto 0.8 X10*3/uL (0.1-1.2); Monocytes Percent Auto 15.2 % (2-11); Neutrophils Absolute Auto 3.1 x10*3/uL (2.0-8.3); Neutrophils Percent Auto 56.6 % (45-73); PLT CLUMP 1; Red Blood Count 4.06 X10*6/uL (4.60-5.80); Red Cell Distribution Width 21.9 % (11.0-16.0)
[2023-11-30 17:23] LABS: PLT ABN DIST 1; White Blood Count 5.5 X10*3/uL (4.8-10.8)
[2023-11-30 17:25] LABS: INTERNATIONAL NORM RATIO 1.3 (0.9-1.1); Prothrombin Time 15.6 SEC (11.1-13.3)
[2023-11-30 17:28] LABS: Partial Thromboplastin Time 39.9 SEC (26.0-36.8)
[2023-11-30 17:37] LABS: Alanine Aminotransferase 15 U/L (0-40); Albumin Level 3.1 g/dL (3.5-5.0); Alkaline Phosphatase 85 U/L (39-117); Anion Gap 11 (12-20); Aspartate Amino Transferase 21 U/L (5-37); Bilirubin Total 0.6 mg/dL (0.0-1.0); Blood Urea Nitrogen 42 mg/dL (9-16); Calcium 9.3 mg/dL (8.4-10.2); Carbon Dioxide 23 mmol/L (22-29); Chloride 109 mmol/L (96-108); Creatinine Clr Calc Pharmacy 35.8; Estimated Glomerular Filt Rate 35; Glucose Random 204 mg/dL (60-115); Magnesium 1.7 mg/dL (1.6-2.6); Potassium 4.6 mmol/L (3.3-5.1); Sodium 138 mmol/L (135-145); Total Protein 6.4 g/dL (6.5-8.0)
[2023-11-30 17:40] LABS: Platelet Count 152 X10*3/uL (160-400)
[2023-11-30 17:41] LABS: SLIDE REVIEW VERIFIED
[2023-11-30 17:42] LABS: B Type Natriuretic Peptide 1644 pg/mL (<100)
[2023-11-30] MEDS: Lidocaine HCl 2 % Urojet 10 ML JEL.PF.APP TOPICAL (17:42)
[2023-11-30 17:44] LABS: Troponin-I High Sensitivity 21.9 ng/L (<3.5-35.0)
[2023-11-30] MEDS: Bumetanide 1 MG/4 ML VIAL 2 MG IVPUSH (18:01)
[2023-11-30 18:48] VITALS: BP 122/41; PULSE 69; RESP 12; O2SAT 98
--- NOTE | 2023-11-30 19:13 | PM.IMHP ---
History of Present Illness Date of Service: 11/30/23 Chief Complaint: Dyspnea, anasarca This is a 73-year-old male with pertinent history of DVT on Xarelto, CAD status post CABG, congestive heart failure with preserved ejection fraction, status post kidney transplant on tacrolimus, advanced dementia who was sent to the emergency department for evaluation of dyspnea and anasarca. Patient is a poor historian and history was obtained with the help of ER provider and chart review. Patient apparently had about 20 lb weight gain in the last 2 weeks. He does endorse dyspnea that has been ongoing for the last 7-10 days. Admits orthopnea, unknown PND. Of note, patient was recently admitted on 11/16 and discharged on 11/22 with acute encephalopathy due to gastric emphysema and hyponatremia. Unable to obtain review of systems. In the emergency department, BNP found to be elevated Review of Systems Review of Systems: Yes Unobtainable due to mental condition PMFSH Medical History Acute on chronic kidney failure Anasarca Acute CHF Hyperglycemia due to diabetes mellitus Abnormal CT scan, gastrointestinal tract Pertinent family history: Unable to obtain Social History Household Members: None Housing: House Do you presently have visiting nurse or other home services: Yes Patient Tobacco Use Status: Never used Tobacco Smoked in Last 30 Days: No Use of substances other than those prescribed or required for medical reasons: No Advance Directives: Yes Advance Directives on File: Yes Advance Directives Date on File: 11/16/23 service: No Meds Allergies Allergy/AdvReac Type Severity Reaction Status Date / Time No Known Allergies Allergy Verified 11/30/23 17:01 Home Medications ?Medication ?Instructions ?Recorded ?Confirmed ?Last Taken ?Type acetaminophen 325 mg tablet 975 mg PO TID 11/16/23 11/30/23 Unknown History aspirin 81 mg chewable tablet 81 mg PO DAILY 11/16/23 11/30/23 11/30/23 History atorvastatin 40 mg tablet 40 mg PO BEDTIME 11/16/23 11/30/23 11/29/23 History carvedilol 25 mg tablet 25 mg PO BID 11/16/23 11/30/23 11/30/23 History insulin aspart U-100 100 unit/mL 0 sliding scale dose subcut TIDAC 11/16/23 11/30/23 11/30/23 History (3 mL) subcutaneous pen (Novolog FlexPen U-100 Insulin aspart) insulin glargine 100 unit/mL (3 10 unit subcut BEDTIME 11/16/23 11/30/23 11/29/23 History mL) subcutaneous pen (Lantus Solostar U-100 Insulin) lactulose 10 gram/15 mL oral 10 g PO DAILY PRN Constipation 11/16/23 11/30/23 Unknown History solution sennosides 8.6 mg tablet (senna) 17.2 mg PO DAILY 11/16/23 11/30/23 11/30/23 History tacrolimus 0.5 mg capsule, 1.5 mg PO BEDTIME 11/16/23 11/30/23 11/29/23 History immediate-release tacrolimus 0.5 mg capsule, 2 mg PO DAILY@0900 11/16/23 11/30/23 11/30/23 History immediate-release trazodone 50 mg tablet 25 mg PO BEDTIME PRN Insomnia 11/16/23 11/30/23 Unknown History Physical Exam Vital Signs and Narrative: Vital Signs: Last Vital Signs Temp 97.8 F 11/30/23 16:58 Pulse 69 11/30/23 18:48 Resp 12 11/30/23 18:48 BP 122/41 L 11/30/23 18:48 Pulse Ox 98 11/30/23 18:48 O2 Del Method Room Air 11/30/23 18:48 BMI result Body Mass Index 29.3 Middle-aged male lying in bed in mild distress Neck supple, JVD + Regular rate and rhythm, S1-S2 heard Bilateral crackles appreciated Abdomen soft nontender, no guarding, no rigidity, abdominal wall edema present Patient is awake, alert and oriented to self, disoriented to place, time and person Extremity: Bilateral lower extremity pedal edema Results Labs 11/30/23 17:11 11/30/23 17:11 Labs: Laboratory Results - last 24 hr 11/30/23 17:11 MCV 73.4 L MCH 22.4 L MCHC 30.5 L RDW 21.9 H Plt Count 152 L MPV Not Reportable Immature Gran % (Auto) 0.4 Neut % (Auto) 56.6 Lymph % (Auto) 21.7 [place] % (Auto) 15.2 H Eos % (Auto) 5.5 H Baso % (Auto) 0.6 Lymph # (Auto) 1.2 [place] # (Auto) 0.8 Eos # (Auto) 0.3 Baso # (Auto) 0.0 Abs Immat Gran (auto) 0.02 Absolute Neuts (auto) 3.1 Absolute Nucleated RBC 0.000 Nucleated RBC % (auto) 0.0 Smear Tech's Comments VERIFIED PT 15.6 H D INR 1.3 H APTT 39.9 H Anion Gap 11 L Estim Creat Clear Calc 35.8 Estimated GFR 35 Random Glucose 204 H Calcium 9.3 Magnesium 1.7 Total Bilirubin 0.6 AST 21 ALT 15 Alkaline Phosphatase 85 Troponin I High Sens 21.9 B-Natriuretic Peptide 1644 H Total Protein 6.4 L Albumin 3.1 L Assessment and Plan (1) Acute CHF: Status: Acute (2) Anasarca: Status: Acute Plan This is a 73-year-old male with pertinent history of DVT on Xarelto, CAD status post CABG, congestive heart failure with preserved ejection fraction, status post kidney transplant on tacrolimus, advanced dementia who was sent to the emergency department for evaluation of dyspnea and anasarca. #. Acute on chronic congestive heart failure with reduced ejection fraction: Initiating IV diuresis. Strict I's and O's. Low-salt diet. Obtaining transthoracic echocardiogram. On beta-cristian, not on Ziggy/Arb #. Anasarca in the setting of above plus hypoalbuminemia leading to 3rd spacing. Renal function at baseline, obtaining UA #. Insulin-dependent diabetes mellitus with hyperglycemia: Initiating Basal plus insulin regimen #. Coronary artery disease status post CABG: On aspirin and high-intensity statin #. Chronic kidney disease/status post renal transplant: Creatinine at baseline. Monitor with diuresis. Continue tacrolimus #. Unspecified advanced dementia: Monitor sleep-wake cycle #. History of DVT: On Xarelto #. Chronic anemia: Hemoglobin above transfusion threshold Med rec pending DVT prophylaxis: Xarelto DNR/DNI Admit as inpatient and will require two night minimum hospital stay for IV diuresis, monitoring of volume status (as above), which is not possible in a lesser acute setting. Quality Stroke Does the patient have a stroke diagnosis?: No VTE Prior VTE?: No VTE Risk Level:: Medical - moderate - high VTE Device Contraindication: Treatment Not Indicated VTE Drug Contraindication: N/A - Med Ordered
--- NOTE | 2023-11-30 19:19 | PC.NURSE ---
Assumed care of pt. pt lying on stretcher, no acute distress at this time. Providing PO for pt, tolerating well.
--- NOTE | 2023-11-30 19:47 | MHC.EDTECH ---
Assumed care at 1900, gave patient two sandwiches and diet valorie ba
[2023-11-30 20:00] VITALS: BP 143/54; PULSE 72; RESP 13; TEMP 36.2; O2SAT 100
[2023-11-30 20:41] LABS: Glucose, Whole Blood 203 mg/dL (60-115)
--- NOTE | 2023-11-30 20:42 | MHC.EDTECH ---
Transferred care to BLANK Gray at 20:15
[2023-11-30] MEDS: Insulin Lispro 100 UNIT/ML 3 ML VIAL SUBCUT (20:44)
[2023-11-30] MEDS: Insulin Glargine,Hum.rec.anlog 100 UNIT/ML 10 ML VIAL 7 UNIT SUBCUT (20:44)
--- NOTE | 2023-11-30 21:11 | PHA.MEDREC ---
Pharmacy Consult ? Medication Reconciliation Pharmacy has completed the medication reconciliation. Spoke to Kavya at [facility] and confirmed medication list.
[2023-11-30 21:38] VITALS: BP 137/53; PULSE 73; RESP 17; TEMP 36.2; O2SAT 100
[2023-11-30 21:56] LABS: Appearance Urine Clear; Color Urine Yellow; Glucose Urine UA 250 mg/dL (Negative); Leukocyte Esterase Urine Negative (Negative); Nitrite Urine Negative (Negative); PH 5.5 (5.0-9.0); Urine Blood Negative (Negative); Urine Ketones Negative (Negative); Urine Protein Negative (Neg-Trace)
[2023-11-30 22:04] LABS: Bacteria Urine None Seen (None Seen); Hyaline Casts Urine 0-2 /LPF (0-2); RBC Urine 0-2 /HPF (0-2); Squamous Epithelial Cell Urine 0-2 /HPF (0-2); WBC Urine 0-5 /HPF (0-5)
[2023-11-30] MEDS: Tacrolimus 0.5 MG CAPSULE 1.5 MG PO (22:40)
[2023-11-30 23:48] VITALS: BP 139/48; PULSE 74; RESP 16; TEMP 36.9; O2SAT 100
--- NOTE | 2023-11-30 23:49 | MHC.EDTECH ---
This pct assumed care of patient at 2300 ,vitals taken ,Patient was reposition and boosted up in bed ,Call angel within pt reach .
--- NOTE | 2023-11-30 23:51 | ECG_ITS ---
Test Reason : SOB Blood Pressure : / mmHG Vent. Rate : 070 BPM Atrial Rate : 070 BPM P-R Int : 142 ms QRS Dur : 132 ms QT Int : 446 ms P-R-T Axes : -09 -74 078 degrees QTc Int : 481 ms Atrial-sensed ventricular-paced rhythm Abnormal ECG When compared with ECG of 16-NOV-2023 15:37, Vent. rate has decreased BY 2 BPM Referred By: Zaid Samaniego Electronically Signed By:TAI SALOMON MD
--- NOTE | 2023-12-01 02:13 | ED_ITS ---
HPI - General Adult General Chief complaint: General Medical Stated complaint: FLUID RETENTION, FROM SNF Time Seen by Provider: 11/30/23 16:51 Source: patient Related Data Home Medications ?Medication ?Instructions ?Recorded ?Confirmed acetaminophen 325 mg tablet 975 mg PO TID 11/16/23 11/30/23 aspirin 81 mg chewable tablet 81 mg PO DAILY 11/16/23 11/30/23 atorvastatin 40 mg tablet 40 mg PO BEDTIME 11/16/23 11/30/23 carvedilol 25 mg tablet 25 mg PO BID 11/16/23 11/30/23 insulin aspart U-100 100 unit/mL 0 sliding scale dose subcut TIDAC 11/16/23 11/30/23 (3 mL) subcutaneous pen (Novolog FlexPen U-100 Insulin aspart) insulin glargine 100 unit/mL (3 10 unit subcut BEDTIME 11/16/23 11/30/23 mL) subcutaneous pen (Lantus Solostar U-100 Insulin) lactulose 10 gram/15 mL oral 10 g PO DAILY PRN Constipation 11/16/23 11/30/23 solution sennosides 8.6 mg tablet (senna) 17.2 mg PO DAILY 11/16/23 11/30/23 tacrolimus 0.5 mg capsule, 1.5 mg PO BEDTIME 11/16/23 11/30/23 immediate-release tacrolimus 0.5 mg capsule, 2 mg PO DAILY@0900 11/16/23 11/30/23 immediate-release trazodone 50 mg tablet 25 mg PO BEDTIME PRN Insomnia 11/16/23 11/30/23 Previous Rx's ?Medication ?Instructions ?Recorded furosemide 40 mg tablet 40 mg PO DAILY #0 tabs 11/23/23 omeprazole 40 mg capsule,delayed 40 mg PO BID@0630,1630 #0 caps 11/23/23 release rivaroxaban 15 mg tablet 15 mg PO QPM #30 tabs 11/23/23 Allergies Allergy/AdvReac Type Severity Reaction Status Date / Time No Known Allergies Allergy Verified 11/30/23 17:01 [facility] Past Medical History Medical History Acute on chronic kidney failure Anasarca Acute CHF Hyperglycemia due to diabetes mellitus Abnormal CT scan, gastrointestinal tract Social History Social History Household Members: None Housing: House Do you presently have visiting nurse or other home services: Yes Patient Tobacco Use Status: Never used Tobacco Smoked in Last 30 Days: No Use of substances other than those prescribed or required for medical reasons: No Advance Directives: Yes Advance Directives on File: Yes Advance Directives Date on File: 11/16/23 service: No Physical Exam ED Vital Signs: Vital Signs - 24 hr 11/30/23 16:58 11/30/23 18:48 Temperature 97.8 F Pulse Rate 76 69 Respiratory Rate 18 12 Blood Pressure 142/59 H 122/41 L Pulse Oximetry 98 98 Oxygen Delivery Method Room Air Room Air BMI result Body Mass Index 29.3 Medications Administered Generic Name Dose Route Start Last Admin Trade Name Freq PRN Reason Stop Dose Admin Insulin Glargine 7 unit 11/30/23 21:00 11/30/23 20:44 Insulin Glargine,Hum.Rec.Anlog 100 Unit/Ml 10 Ml Vial SUBCUT 7 unit BEDTIME [facility] Administration Insulin Human Lispro 0 unit 11/30/23 21:00 11/30/23 20:44 Insulin Lispro 100 Unit/Ml 3 Ml Vial SUBCUT 4 unit QIDACHS [facility] Administration Protocol Sodium Chloride 3 ml 12/01/23 00:00 12/01/23 01:51 0.9 % Sodium Chloride Flush 3 Ml Syringe IVFLUSH Not Given QSHIFT NELSON Tacrolimus 1.5 mg 11/30/23 22:25 11/30/23 22:40 Tacrolimus 0.5 Mg Capsule PO 1.5 mg BEDTIME NELSON Administration Discontinued Medications Generic Name Dose Route Start Last Admin Trade Name Freq PRN Reason Stop Dose Admin Bumetanide 2 mg 11/30/23 17:15 11/30/23 18:01 Bumetanide 1 Mg/4 Ml Vial IVPUSH 11/30/23 17:16 2 mg ONCE ONE Administration Protocol Lidocaine HCl 10 ml 11/30/23 17:27 11/30/23 17:42 Lidocaine Hcl 2 % Urojet 10 Ml Jel.Pf.[place] TOPICAL 11/30/23 17:28 10 ml ONCE ONE Administration Medical Decision Making Lab Data 11/30/23 17:11 11/30/23 17:11 Labs: Lab Results 11/30/23 Range/Units 17:11 WBC 5.5 (4.8-10.8) X10*3/uL RBC 4.06 L (4.60-5.80) X10*6/uL Hgb 9.1 L (14.0-18.0) g/dl Hct 29.8 L (42.0-52.0) % MCV 73.4 L (80.0-98.0) fL MCH 22.4 L (27.0-33.0) pg MCHC 30.5 L (31.0-36.0) g/dl RDW 21.9 H (11.0-16.0) % Plt Count 152 L (160-400) X10*3/uL MPV Not Reportable Immature Gran % (Auto) 0.4 (0.0-0.4) % Neut % (Auto) 56.6 (45-73) % Lymph % (Auto) 21.7 (20-40) % [place] % (Auto) 15.2 H (2-11) % Eos % (Auto) 5.5 H (0-4) % Baso % (Auto) 0.6 (0-2) % Lymph # (Auto) 1.2 (1.2-4.9) X10*3/uL [place] # (Auto) 0.8 (0.1-1.2) X10*3/uL Eos # (Auto) 0.3 (0.0-0.4) X10*3/uL Baso # (Auto) 0.0 (0.0-0.2) X10*3/uL Abs Immat Gran (auto) 0.02 (0.00-0.03) X10*3/uL Absolute Neuts (auto) 3.1 (2.0-8.3) x10*3/uL Absolute Nucleated RBC 0.000 (0.0-0.012) X10*3/uL Nucleated RBC % (auto) 0.0 (0.0-0.2) /100WBC Smear Tech's Comments VERIFIED PT 15.6 H D (11.1-13.3) SEC INR 1.3 H (0.9-1.1) APTT 39.9 H (26.0-36.8) SEC Sodium 138 (135-145) mmol/L Potassium 4.6 (3.3-5.1) mmol/L Chloride 109 H (96-108) mmol/L Carbon Dioxide 23 (22-29) mmol/L Anion Gap 11 L (12-20) BUN 42 H (9-16) mg/dL Creatinine 1.91 H (0.5-1.4) mg/dL Estim Creat Clear Calc 35.8 Estimated GFR 35 Random Glucose 204 H (60-115) mg/dL Calcium 9.3 (8.4-10.2) mg/dL Magnesium 1.7 (1.6-2.6) mg/dL Total Bilirubin 0.6 (0.0-1.0) mg/dL AST 21 (5-37) U/L ALT 15 (0-40) U/L Alkaline Phosphatase 85 (39-117) U/L Troponin I High Sens 21.9 (<3.5-35.0) ng/L B-Natriuretic Peptide 1644 H (<100) pg/mL Total Protein 6.4 L (6.5-8.0) g/dL Albumin 3.1 L (3.5-5.0) g/dL Discharge Plan Discharge Patient Disposition: Admitted As Inpatient Interventions: Admission Worksheet (ED) Last Done: 11/30/23 22:33
[2023-12-01 04:15] VITALS: BP 143/44; PULSE 70; RESP 16; TEMP 36.6; O2SAT 99
[2023-12-01] MEDS: traZODone HCL 25 MG HALFTAB PO (04:24)
--- NOTE | 2023-12-01 04:35 | MHC.EDTECH ---
PATIENT AWAKE ALL NIGHT ,RING FOR FOOD AND MEDS .
[2023-12-01 06:53] VITALS: BP 127/37; PULSE 71; RESP 16; TEMP 36.7; O2SAT 96
--- NOTE | 2023-12-01 07:00 | CA_ITS ---
Transthoracic Echocardiogram Patient (Last, First, Middle): Irena Hobson, Gender: Male Date of : 1950 Age: 73 Procedure Date: 12/01/2023 Procedure Type: Transthoracic Echocardiogram Location: S3E Height: 170.18 cm Weight: 84.37 kg BSA: 1.96 m2 Heart Rate: bpm BP: 113 / 72 mmHg Rn Observation: Referring MD: Gonzalo Jasso MD Orthopedically Impaired Teacher: Yasmany Owens MD Symptoms: CHF Study Quality: Adequate ECG Rhythm: Sinus Conclusions: - 1. Zyhm-am-pudhelky LV systolic dysfunction with moderate LVH with elevated filling pressures with regional wall motion abnormality consistent with ischemic cardiomyopathy 2. Early mild aortic stenosis 3. Calcific mitral valve changes noted, mitral stenosis can not be entirely ruled out with mild mitral regurgitation 4. Mildly to moderately elevated right ventricular systolic pressure with significantly elevated right atrial pressures 5. Upper limits of normal ascending aortic size 6. No gross pericardial effusion Findings Left Ventricle Normal left ventricular cavity size. There is moderately increased left ventricular wall thickness. The left ventricular systolic function is mild to moderately decreased. The visually estimated ejection fraction is between 40-45%. There is paradoxical septal motion consistent with a right ventricular pacemaker. Spectral Doppler is indicative of an impaired relaxation filling pattern. Elevated filling pressures. E/E prime ratio is >15, consistent with elevated filling pressures. Wall Motion Rest Echo Findings The apical anterior, basal inferior, mid inferior, mid inferoseptal, and mid anteroseptal segments are hypokinetic. The apex, apical inferior, and apical septum segments are akinetic. All other scored wall segments showed normal motion. Right Ventricle Normal right ventricular cavity size. There is normal right ventricular systolic function. There is a pacemaker wire seen in the right ventricle. Atria The left atrium is severely dilated. There is no evidence of interatrial shunt. The right atrium is mildly dilated. A pacemaker wire is identified in the right atrium. Aortic Valve There is mild calcification of the aortic valve. There is mild aortic valve stenosis. The peak aortic gradient is 13 mmHg.The mean gradient is 6 mmHg. The aortic valve area is 1.95 cm2. There is no aortic valve regurgitation. Mitral Valve There is moderate anterior and posterior mitral leaflet thickening. There is mild anterior and mild posterior mitral annular calcification. There is moderate mitral annular calcification. There is mild mitral valve regurgitation. There is no mitral valve stenosis. Pulmonic Valve The pulmonic valve is likely normal. There is trace pulmonic valve regurgitation. Tricuspid Valve Normal tricuspid valve structure. There is mild tricuspid valve regurgitation. Significantly elevated right atrial pressure. Mild to moderate pulmonary hypertension is present. Great Vessels The pulmonary artery was not well visualized. Small plaque is seen in the sino tubular ridge. Venous The inferior vena cava is mildly dilated and does not collapse with inspiration. Pericardium/Pleural There is no evidence of pericardial effusion. Prior Study Comparison No prior study available for comparison. Measurements 2D Linear Measurements IVSd: 1.50 0.6-0.9/0.6-1.0 cm LVIDd: 5.10 3.9-5.3/4.2-5.9 cm LVIDd Index: 2.60 2.4-3.2/2.2-3.1 cm/m2 LVIDs: 3.32 2.0-3.6 cm LVPWd: 1.55 0.7-1.1 cm Ao Root: 3.70 2.1-3.5 cm LA Diam: 4.50 2.7-3.8/3.0-4.0 cm LAIDs Index: 2.30 1.5-2.3 cm/m2 LV Mass: 425.04 67-162/88-224 g LV Mass Index: 216.86 43-95/49-115 g/m2 LVOT Diam: 2.10 3.0+(-)1.3 cm 2D Systolic Function EF 4C: 41.50 >55% EF 2C: 41.10 >55% EF BiP: 41.60 >55% Mitral Valve MV VTI: 0.55 MV Pk Kel: 1.76 MV Mn Kel: 0.93 MV Pk Grad: 12.00 MV Mn Grad: 4.00 MV Pk E: 1.25 MV PK A: 1.47 MV Decel Time: 296.00 E/A: 0.90 E'Lateral: 3.81 E'Medial: 4.46 E/E' Med: 28.00 E/E' Lat: 32.80 PHT: 87.00 MVA PHT: 2.53 MVA Continuity: 1.46 Decel Crowley: 4.22 Aortic Valve AoV Pk Kel: 1.81 AoV Mn Kel: 1.11 AoV VTI: 0.41 AoV Pk Grad: 13.00 Aov Mn Grad: 6.00 GIOVANNY Cont.VTI: 1.95 LVOT LVOT Pk Kel: 1.07 LVOT Mn Kel: 0.63 LVOT VTI: 0.23 LVOT Pk Grad: 5.00 LVOT Mn Grad: 2.00 LVOT Diam: 2.10 LVOT Area: 3.46 Diastolic Function MV Pk E: 1.25 MV Pk A: 1.47 E/A: 0.90 E'Medial: 4.46 E/E' Med: 28.00 E' Laterial: 3.81 E/E' Lat: 32.80 Right Ventricle TAPSE (mm): 24.90 TVS' Kel: 7.29 Tricuspid Valve TR Pk Kel: 2.80 TR Pk Grad: 31.00 RA Press: 15.00 RVSP: 46.00 Great Vessels Aorta Ao Root-2D: 3.70 2.0-3.7 cm Ao Asc: 3.60 2.1-3.4 cm Pulmonary Valve PV Pk Kel: 1.32 Peak PV Grad: 7.00 Updated in Other Vendor System with Status of Final Yasmany Owens MD electronically signed on 12/01/2023 11:36:09 AM with status of Final
[2023-12-01 07:21] VITALS: BP 113/72; PULSE 72; RESP 14; TEMP 37.4; O2SAT 100
[2023-12-01 07:26] LABS: Glucose, Whole Blood 244 mg/dL (60-115)
[2023-12-01] MEDS: Omeprazole 40 MG CAPSULE.DR PO ×2 (07:34→17:05)
[2023-12-01] MEDS: Insulin Lispro 100 UNIT/ML 3 ML VIAL SUBCUT ×4 (07:35→20:43)
--- NOTE | 2023-12-01 08:41 | PC.NURSE ---
Echo at bedside
--- NOTE | 2023-12-01 09:14 | MHC.CM.PN ---
Addendum entered by Sharon Castelan RN 12/01/23 14:28: Rec'd follow up from financial counselor who advised patient's to seek assistance from a medicaid engineering agent due to assets (a home and savings account), income and upcoming divorce. CM will continue to follow. Addendum entered by Sharon Castelan RN 12/01/23 10:19: Per - cannot afford bed hold at this time (> $400/day). If unable to find a facility, will plan to move in with patient and provide care. Addendum entered by Sharon Castelan RN 12/01/23 09:54: will reach out to [facility] to look into paying for bed hold. Original Note: Patient dx advanced dementia. CASTING HOUSE LABORER completed with /HCP Cheryl via telephone. IMM verbally delivered. Patient presents from STR at [facility]. Prior to STR patient was living at home alone w/ services: [facility] and UNEMPLOYMENT INSURANCE HEARING OFFICER through [facility] 2x/wk. Per Cheryl, patient was ambulating short distances w/ a walker at [facility]. PCP Moises Saldivar MD DP: Goal is return to STR via BLS. Return referral sent to [facility]. requesting assistance with [facility] application. Referral sent to financial services. CM will continue to follow for dc needs.
[2023-12-01] MEDS: Acetaminophen 325 MG TABLET 975 MG PO ×3 (09:41→20:48)
[2023-12-01] MEDS: carvediloL 25 MG TABLET PO ×2 (09:41→20:52)
[2023-12-01] MEDS: Sennosides 8.6 MG TABLET 17.2 MG PO (09:41)
[2023-12-01] MEDS: Aspirin 81 MG TAB.CHEW PO (09:41)
[2023-12-01] MEDS: Furosemide 40 MG/4 ML VIAL IVPUSH (09:42)
[2023-12-01 11:18] LABS: Basophils Absolute Auto 0.1 X10*3/uL (0.0-0.2); Basophils Percent Auto 0.9 % (0-2); Eosinophils Absolute Auto 0.3 X10*3/uL (0.0-0.4); Eosinophils Percent Auto 5.4 % (0-4); Hematocrit 32.1 % (42.0-52.0); Hemoglobin 9.8 g/dl (14.0-18.0); Imm Gran Abs Auto 0.04 X10*3/uL (0.00-0.03); Imm Gran Pct Auto 0.7 % (0.0-0.4); Lymphocytes Absolute Auto 1.4 X10*3/uL (1.2-4.9); Lymphocytes Percent Auto 25.6 % (20-40); MANUAL DIFF FLAG SCAN; Mean Corpuscular HGB Conc 30.5 g/dl (31.0-36.0); Mean Corpuscular Hemoglobin 22.5 pg (27.0-33.0); Mean Corpuscular Volume 73.8 fL (80.0-98.0); Monocytes Absolute Auto 0.9 X10*3/uL (0.1-1.2); Monocytes Percent Auto 16.8 % (2-11); Neutrophils Absolute Auto 2.8 x10*3/uL (2.0-8.3); Neutrophils Percent Auto 50.6 % (45-73); PLT CLUMP 1; Red Blood Count 4.35 X10*6/uL (4.60-5.80); Red Cell Distribution Width 22.5 % (11.0-16.0); SCAN SMEAR FLAG 1
[2023-12-01 11:31] LABS: Anion Gap 16 (12-20); Blood Urea Nitrogen 41 mg/dL (9-16); Carbon Dioxide 19 mmol/L (22-29); Chloride 109 mmol/L (96-108); Creatinine Clr Calc Pharmacy 34.5; Estimated Glomerular Filt Rate 33; Glucose Random 286 mg/dL (60-115); Potassium 5.1 mmol/L (3.3-5.1); Sodium 139 mmol/L (135-145)
[2023-12-01 11:37] LABS: Glucose, Whole Blood 271 mg/dL (60-115)
--- NOTE | 2023-12-01 12:05 | P.PNIM_ITS ---
Subjective Subjective Date of Service: 12/01/23 Interval History: sob resolved Physical Exam 2 Vital Signs: Vital Signs: Last Vital Signs Temp 99.4 F 12/01/23 07:21 Pulse 72 12/01/23 07:21 Resp 14 12/01/23 07:21 BP 113/72 12/01/23 07:21 Pulse Ox 100 12/01/23 07:21 O2 Del Method Nasal Cannula 12/01/23 07:21 O2 Flow Rate 2 12/01/23 07:21 BMI result Body Mass Index 29.3 alert oriented time 3, questionable insight, bilateral upper extremity edema Objective Data Active Medications Acetaminophen (Acetaminophen 325 Mg Tablet) 650 mg PO Q6H PRN PRN Reason: Pain, Mild (Pain Scale 1-3) Acetaminophen (Acetaminophen 325 Mg Tablet) 975 mg PO TID [facility] Last Admin: 12/01/23 09:41 Dose: 975 mg Documented By: ALISIA Aspirin (Aspirin 81 Mg Tab.Chew) 81 mg PO DAILY [facility] Last Admin: 12/01/23 09:41 Dose: 81 mg Documented By: ALISIA Atorvastatin Calcium (Atorvastatin Calcium 40 Mg Tablet) 40 mg PO BEDTIME [facility] Carvedilol (Carvedilol 25 Mg Tablet) 25 mg PO BID [facility]; Protocol Last Admin: 12/01/23 09:41 Dose: 25 mg Documented By: ALISIA Furosemide (Furosemide 40 Mg/4 Ml Vial) 40 mg IVPUSH DAILY [facility]; Protocol Last Admin: 12/01/23 09:42 Dose: 40 mg Documented By: ALISIA Glucose (Glucose Gel 15 Gm Gel..Gram.) 15 gm PO Q15M PRN; Protocol PRN Reason: per Hypoglycemia Standing Ord. Dextrose (D10) 250 mls @ 750 mls/hr IV Q15M PRN; Protocol PRN Reason: per Hypoglycemia Standing Ord. Insulin Glargine (Insulin Glargine,Hum.Rec.Anlog 100 Unit/Ml 10 Ml Vial) 7 unit SUBCUT BEDTIME [facility] Last Admin: 11/30/23 20:44 Dose: 7 unit Documented By: MAGALI Insulin Human Lispro (Insulin Lispro 100 Unit/Ml 3 Ml Vial) 0 unit SUBCUT QIDACHS [facility]; Protocol Last Admin: 12/01/23 07:35 Dose: 4 unit Documented By: MILAGROS Lactulose (Lactulose 20 Gm/30 Ml Solution) 10 gm PO DAILY PRN PRN Reason: Constipation Melatonin (Melatonin 3 Mg Tablet) 6 mg PO BEDTIME PRN PRN Reason: Insomnia Omeprazole (Omeprazole 40 Mg Capsule.Dr) 40 mg PO BID@0630,1630 [facility] Last Admin: 12/01/23 07:34 Dose: 40 mg Documented By: MILAGROS Ondansetron HCl (Ondansetron Hcl 4 Mg/2 Ml Vial) 4 mg IVPUSH Q8H PRN PRN Reason: Nausea and Vomiting Rivaroxaban (Rivaroxaban 15 Mg Tablet) 15 mg PO DAILY@1800 [facility] Senna (Sennosides 8.6 Mg Tablet) 17.2 mg PO DAILY [facility] Last Admin: 12/01/23 09:41 Dose: 17.2 mg Documented By: ALISIA Sodium Chloride (0.9 % Sodium Chloride Flush 3 Ml Syringe) 3 ml IVFLUSH QSHIFT [facility] Last Admin: 12/01/23 09:40 Dose: Not Given Documented By: ALISIA Non-Admin Reason: in ed Tacrolimus (Tacrolimus 0.5 Mg Capsule) 1.5 mg PO BEDTIME [facility] Last Admin: 11/30/23 22:40 Dose: 1.5 mg Documented By: MAGALI Tacrolimus (Tacrolimus 1 Mg Capsule) 2 mg PO DAILY@0900 [facility] Trazodone HCl (Trazodone Hcl 25 Mg Halftab) 25 mg PO BEDTIME PRN PRN Reason: Insomnia Last Admin: 12/01/23 04:24 Dose: 25 mg Documented By: CARSON Labs 11/30/23 17:11 12/01/23 11:00 Labs: Laboratory Results - last 24 hr 11/30/23 11/30/23 11/30/23 17:11 20:37 21:48 MCV 73.4 L MCH 22.4 L MCHC 30.5 L RDW 21.9 H Plt Count 152 L MPV Not Reportable Immature Gran % (Auto) 0.4 Neut % (Auto) 56.6 Lymph % (Auto) 21.7 [place] % (Auto) 15.2 H Eos % (Auto) 5.5 H Baso % (Auto) 0.6 Lymph # (Auto) 1.2 [place] # (Auto) 0.8 Eos # (Auto) 0.3 Baso # (Auto) 0.0 Abs Immat Gran (auto) 0.02 Absolute Neuts (auto) 3.1 Absolute Nucleated RBC 0.000 Nucleated RBC % (auto) 0.0 Smear Tech's Comments VERIFIED PT 15.6 H D INR 1.3 H APTT 39.9 H Anion Gap 11 L Estim Creat Clear Calc 35.8 Estimated GFR 35 POC Glucose 203 H Random Glucose 204 H Calcium 9.3 Magnesium 1.7 Total Bilirubin 0.6 AST 21 ALT 15 Alkaline Phosphatase 85 Troponin I High Sens 21.9 B-Natriuretic Peptide 1644 H Total Protein 6.4 L Albumin 3.1 L Urine Color Yellow Urine Appearance Clear Urine pH 5.5 Ur Specific [place] 1.010 Urine Protein Negative Urine Glucose (UA) 250 H Urine Ketones Negative Urine Blood Negative Urine Nitrite Negative Ur Leukocyte Esterase Negative Urine RBC 0-2 Urine WBC 0-5 Ur Squamous Epith Cells 0-2 Urine Bacteria None Seen Hyaline Casts 0-2 12/01/23 12/01/23 12/01/23 07:18 11:00 11:25 MCV MCH MCHC RDW Plt Count MPV Not Reportable Immature Gran % (Auto) Neut % (Auto) Lymph % (Auto) [place] % (Auto) Eos % (Auto) Baso % (Auto) Lymph # (Auto) [place] # (Auto) Eos # (Auto) Baso # (Auto) Abs Immat Gran (auto) Absolute Neuts (auto) Absolute Nucleated RBC Nucleated RBC % (auto) Smear Tech's Comments PT INR APTT Anion Gap 16 Estim Creat Clear Calc 34.5 Estimated GFR 33 POC Glucose 244 H 271 H Random Glucose 286 H Calcium 9.0 Magnesium Total Bilirubin AST ALT Alkaline Phosphatase Troponin I High Sens B-Natriuretic Peptide Total Protein Albumin Urine Color Urine Appearance Urine pH Ur Specific [place] Urine Protein Urine Glucose (UA) Urine Ketones Urine Blood Urine Nitrite Ur Leukocyte Esterase Urine RBC Urine WBC Ur Squamous Epith Cells Urine Bacteria Hyaline Casts Assessment and Plan (1) Anasarca: Status: Acute Plan 73M PMH DVT on xarelto, CAD s/p cabg, CKD III s/p transplant, renal artery stenosis, unspecified dementia, hfref Acute on chronic systolic CHF Continue IV Lasix, follow up echocardiogram History of DVT Continue Xarelto Coronary disease Aspirin, Xarelto, statin CKD 3 status post renal transplant Continue Prograf Unspecified dementia At baseline DNR/DNI reason for continued hospitalization: IV diuresis Quality Stroke Does the patient have a stroke diagnosis?: No VTE Prior VTE?: No VTE Risk Level:: Medical - moderate - high VTE Device Contraindication: Treatment Not Indicated VTE Drug Contraindication: N/A - Med Ordered
[2023-12-01 12:27] LABS: White Blood Count 5.5 X10*3/uL (4.8-10.8)
[2023-12-01 12:28] LABS: Platelet Count 91 X10*3/uL (160-400); SLIDE REVIEW VERIFIED
[2023-12-01 12:29] VITALS: BMI 29.3
--- NOTE | 2023-12-01 13:29 | MHC.CLN ---
NUTRITION DIET=CARDIAC. SIGNIFICANT WEIGHT GAIN X 2 WEEKS, +16.8%. CHF AND ANASARCA ARE CAUSALS OF WEIGHT GAIN. PER MD, IV DIURESIS AND LOW SALT DIET. CARDIAC DIET INCLUDES 2 GRAM SODIUM PARAMETERS. CHRONIC UNSTAGEABLE WOUND TO LEFT HEEL. ADDING ENSURE BID TO PROMOTE WOUND HEALING. SUPPLEMENT PROVIDES 700 KCALS, 40 G PROTEIN. FOLLOW FOR INTAKE, WEIGHT, AND WOUND HEALING. SEE CLINICAL NUTRITION ASSESSMENT 12/01/23.
[2023-12-01 15:39] VITALS: BP 99/53; PULSE 69; RESP 18; TEMP 36.4; O2SAT 97
[2023-12-01 16:08] LABS: Glucose, Whole Blood 212 mg/dL (60-115)
[2023-12-01] MEDS: Rivaroxaban 15 MG TABLET PO (17:05)
[2023-12-01] MEDS: 0.9 % Sodium Chloride Flush 3 ML SYRINGE IVFLUSH (17:08)
[2023-12-01 20:00] VITALS: BP 101/56; PULSE 69; RESP 18; TEMP 36.6; O2SAT 97
[2023-12-01 20:24] LABS: Glucose, Whole Blood 194 mg/dL (60-115)
[2023-12-01] MEDS: Insulin Glargine,Hum.rec.anlog 100 UNIT/ML 10 ML VIAL 7 UNIT SUBCUT (20:42)
[2023-12-01] MEDS: Tacrolimus 0.5 MG CAPSULE 1.5 MG PO (20:45)
[2023-12-01] MEDS: Atorvastatin Calcium 40 MG TABLET PO (20:52)
--- NOTE | 2023-12-01 23:08 | PC.NURSE ---
pt sleepy but arousable at bedside on assessment, lungs upper lobes CTA, mid/bases dim, slight fine crackle on auscultation. n onoted fluid restriction found. Pt reports intermittent shortness of breath however assessment is benign 02 sats 100% on RA, not tachypneic, reported to contour sander md- ordered to [facility] only. Denies any other needs at this time. call angel within reach will continue to monitor for changes.
[2023-12-02] MEDS: 0.9 % Sodium Chloride Flush 3 ML SYRINGE IVFLUSH ×4 (00:57→20:01)
--- NOTE | 2023-12-02 01:30 | PC.NURSE ---
pt said he didn't get a tray so, hungry. he wants to eat something. this nurse offered sandwich. but he doesn't want it. according to VIDEO SOFTWARE ENGINEER he ate tons of gram cracker and diet valorie ba before 2300. pt seems confused and forgetful. focus on food. arlen. arm non-pitting edematous. elevated all extremities. lung sounds clear. abd soft large all quadrants bs +. will cont. monitor.
[2023-12-02 01:37] VITALS: BMI 29.3
[2023-12-02 03:53] VITALS: BP 108/51; PULSE 71; RESP 18; TEMP 36.8; O2SAT 100
[2023-12-02] MEDS: Omeprazole 40 MG CAPSULE.DR PO ×2 (06:10→17:00)
[2023-12-02 07:51] LABS: Glucose, Whole Blood 175 mg/dL (60-115)
[2023-12-02 08:00] VITALS: BP 129/58; PULSE 71; RESP 12; TEMP 36.6; O2SAT 97
[2023-12-02] MEDS: Acetaminophen 325 MG TABLET 975 MG PO ×2 (08:25→20:00)
[2023-12-02] MEDS: Insulin Lispro 100 UNIT/ML 3 ML VIAL SUBCUT ×4 (08:26→21:15)
[2023-12-02] MEDS: Sennosides 8.6 MG TABLET 17.2 MG PO (08:26)
[2023-12-02] MEDS: Aspirin 81 MG TAB.CHEW PO (08:26)
[2023-12-02] MEDS: Tacrolimus 1 MG CAPSULE 2 MG PO (08:26)
[2023-12-02] MEDS: carvediloL 25 MG TABLET PO ×2 (08:27→20:01)
[2023-12-02] MEDS: Furosemide 40 MG/4 ML VIAL IVPUSH (08:37)
--- NOTE | 2023-12-02 10:49 | HO.PM.IMPN ---
Subjective Subjective Date of Service: 12/02/23 Interval History: sob resolved Physical Exam Vital Signs: Vital Signs: Last Vital Signs Temp 97.9 F 12/02/23 08:00 Pulse 71 12/02/23 08:00 Resp 12 12/02/23 08:00 BP 129/58 L 12/02/23 08:00 Pulse Ox 97 12/02/23 08:00 O2 Del Method Room Air 12/02/23 08:00 O2 Flow Rate 2 12/01/23 07:21 BMI result Body Mass Index 29.3 alert oriented time 3, questionable insight, bilateral upper extremity edema improved Objective Data Active Medications Acetaminophen (Acetaminophen 325 Mg Tablet) 650 mg PO Q6H PRN PRN Reason: Pain, Mild (Pain Scale 1-3) Acetaminophen (Acetaminophen 325 Mg Tablet) 975 mg PO TID [facility] Last Admin: 12/02/23 08:25 Dose: 975 mg Documented By: REJI Aspirin (Aspirin 81 Mg Tab.Chew) 81 mg PO DAILY [facility] Last Admin: 12/02/23 08:26 Dose: 81 mg Documented By: REJI Atorvastatin Calcium (Atorvastatin Calcium 40 Mg Tablet) 40 mg PO BEDTIME [facility] Last Admin: 12/01/23 20:52 Dose: 40 mg Documented By: GINGER Carvedilol (Carvedilol 25 Mg Tablet) 25 mg PO BID [facility]; Protocol Last Admin: 12/02/23 08:27 Dose: 25 mg Documented By: REJI Furosemide (Furosemide 40 Mg/4 Ml Vial) 40 mg IVPUSH DAILY [facility]; Protocol Last Admin: 12/02/23 08:37 Dose: 40 mg Documented By: REJI Glucose (Glucose Gel 15 Gm Gel..Gram.) 15 gm PO Q15M PRN; Protocol PRN Reason: per Hypoglycemia Standing Ord. Dextrose (D10) 250 mls @ 750 mls/hr IV Q15M PRN; Protocol PRN Reason: per Hypoglycemia Standing Ord. Insulin Glargine (Insulin Glargine,Hum.Rec.Anlog 100 Unit/Ml 10 Ml Vial) 7 unit SUBCUT BEDTIME [facility] Last Admin: 12/01/23 20:42 Dose: 7 unit Documented By: GINGER Insulin Human Lispro (Insulin Lispro 100 Unit/Ml 3 Ml Vial) 0 unit SUBCUT QIDACHS [facility]; Protocol Last Admin: 12/02/23 08:26 Dose: 2 unit Documented By: REJI Lactulose (Lactulose 20 Gm/30 Ml Solution) 10 gm PO DAILY PRN PRN Reason: Constipation Melatonin (Melatonin 3 Mg Tablet) 6 mg PO BEDTIME PRN PRN Reason: Insomnia Omeprazole (Omeprazole 40 Mg Capsule.Dr) 40 mg PO BID@0630,1630 [facility] Last Admin: 12/02/23 06:10 Dose: 40 mg Documented By: CARTER Ondansetron HCl (Ondansetron Hcl 4 Mg/2 Ml Vial) 4 mg IVPUSH Q8H PRN PRN Reason: Nausea and Vomiting Rivaroxaban (Rivaroxaban 15 Mg Tablet) 15 mg PO DAILY@1800 [facility] Last Admin: 12/01/23 17:05 Dose: 15 mg Documented By: JANAK Senna (Sennosides 8.6 Mg Tablet) 17.2 mg PO DAILY [facility] Last Admin: 12/02/23 08:26 Dose: 17.2 mg Documented By: REJI Sodium Chloride (0.9 % Sodium Chloride Flush 3 Ml Syringe) 3 ml IVFLUSH QSHIFT [facility] Last Admin: 12/02/23 08:27 Dose: 3 ml Documented By: REJI Tacrolimus (Tacrolimus 0.5 Mg Capsule) 1.5 mg PO BEDTIME [facility] Last Admin: 12/01/23 20:45 Dose: 1.5 mg Documented By: GINGER Tacrolimus (Tacrolimus 1 Mg Capsule) 2 mg PO DAILY@0900 [facility] Last Admin: 12/02/23 08:26 Dose: 2 mg Documented By: REJI Trazodone HCl (Trazodone Hcl 25 Mg Halftab) 25 mg PO BEDTIME PRN PRN Reason: Insomnia Last Admin: 12/01/23 04:24 Dose: 25 mg Documented By: CARSON Labs 12/01/23 11:00 12/01/23 11:00 Labs: Laboratory Results - last 24 hr 12/01/23 12/01/23 12/01/23 11:00 11:25 16:02 MCV 73.8 L MCH 22.5 L MCHC 30.5 L RDW 22.5 H Plt Count 91 L D MPV Not Reportable Immature Gran % (Auto) 0.7 H Neut % (Auto) 50.6 Lymph % (Auto) 25.6 [place] % (Auto) 16.8 H Eos % (Auto) 5.4 H Baso % (Auto) 0.9 Lymph # (Auto) 1.4 [place] # (Auto) 0.9 Eos # (Auto) 0.3 Baso # (Auto) 0.1 Abs Immat Gran (auto) 0.04 H Absolute Neuts (auto) 2.8 Absolute Nucleated RBC 0.000 Nucleated RBC % (auto) 0.0 Smear Tech's Comments VERIFIED Anion Gap 16 Estim Creat Clear Calc 34.5 Estimated GFR 33 POC Glucose 271 H 212 H Random Glucose 286 H Calcium 9.0 12/01/23 12/02/23 20:11 07:06 MCV MCH MCHC RDW Plt Count MPV Immature Gran % (Auto) Neut % (Auto) Lymph % (Auto) [place] % (Auto) Eos % (Auto) Baso % (Auto) Lymph # (Auto) [place] # (Auto) Eos # (Auto) Baso # (Auto) Abs Immat Gran (auto) Absolute Neuts (auto) Absolute Nucleated RBC Nucleated RBC % (auto) Smear Tech's Comments Anion Gap Estim Creat Clear Calc Estimated GFR POC Glucose 194 H 175 H Random Glucose Calcium Assessment and Plan (1) Anasarca: Status: Acute Plan 73M PMH DVT on xarelto, CAD s/p cabg, CKD III s/p transplant, renal artery stenosis, unspecified dementia, hfref Acute on chronic systolic CHF change to po lasix History of DVT Continue Xarelto Coronary disease Aspirin, Xarelto, statin CKD 3 status post renal transplant Continue Prograf Unspecified dementia At baseline DNR/DNI reason for continued hospitalization: safe dispo Quality Stroke Does the patient have a stroke diagnosis?: No VTE Prior VTE?: No VTE Risk Level:: Medical - moderate - high VTE Device Contraindication: Treatment Not Indicated VTE Drug Contraindication: N/A - Med Ordered
[2023-12-02 11:31] LABS: Glucose, Whole Blood 201 mg/dL (60-115)
--- NOTE | 2023-12-02 12:41 | HO.SKINPHOTO ---
Wound care nurse consulted. Foam dressing applied to left buttock, turn and reposition Q2 hours. Foam dressing applied to bilateral heels, right heel for prevention only. Right knee and right toes DUSTY. Pt refuses to turn and reposition at times, education ongoing. Left Buttock: Left heel: Left heel #2 Right foot: Right great toe, 2nd toe Right knee:
[2023-12-02 13:01] VITALS: O2SAT 97
--- NOTE | 2023-12-02 13:18 | PC.NURSE ---
Pt c/o SOB, LS dim 98% on room air, RR 18-10 non-labored breathing, MD Saavedra made aware, CXR ordered.
--- NOTE | 2023-12-02 13:20 | MHC.CM.PN ---
Addendum entered by Sharon Castelan RN 12/02/23 16:14: Per EC patient will receive the follow services on dc: MOW, personal care, home making, life alert. [facility] will resume services starting 12/03. Cheryl will be primary caregiver. Reviewed plan w/ Cheryl who is agreeable. Plan to dc 12/02 at 5pm to [facility]. IMM delivered. MD aware. Original Note: EMR reviewed. Per MD rounds patient is medically cleared for dc. [facility] not able to accept back. Unable to refer to other STR, as there is not a skilled need at this time. Reviewed w/ /HCP Cheryl. Plan for Cheryl to take patient home w/ VNA and POLICE COMMANDING OFFICER services. Patient active w/ [facility]. Referral sent to [facility] to discuss services with . CM will continue to follow for dc needs.
--- NOTE | 2023-12-02 14:50 | PC.NURSE ---
FC removed at approximately 10:25, per MD orderers. Pt incontinent of urine 3x this shift.
[2023-12-02 14:52] VITALS: BP 104/49; PULSE 68; RESP 18; TEMP 36.1; O2SAT 99
[2023-12-02 15:52] VITALS: BP 132/63; PULSE 66; RESP 18; TEMP 36.2; O2SAT 98
--- NOTE | 2023-12-02 15:56 | PC.NURSE ---
Addendum entered by Gretel Gould RN 12/02/23 19:02: Pt continues to yell out help, help when entering the room pt states I am having trouble breathing , o2 checked multiple times, 97%-98% on room air, LS dim, pt dose not appear SOB, speaking in full sentences without difficulty. MD Saavedra made aware, ordered 1x dose of Xanax, given with poor effect. Education given multiple times on use of call angel. Original Note: MD Saavedra made aware via tiger text at 13:01 that pt complaining of SOB, VSS o2 at 97% on room air, CXR ordered. MD Saavedra made aware via tiger text at 15:55 pt c/o SOB again, VSS, o2 98% on RA.
[2023-12-02] MEDS: ALPRAZolam 0.25 MG TABLET 0.125 MG PO (16:08)
[2023-12-02 16:09] LABS: Glucose, Whole Blood 186 mg/dL (60-115)
[2023-12-02] MEDS: Rivaroxaban 15 MG TABLET PO (17:00)
[2023-12-02] MEDS: Lactulose 20 GM/30 ML SOLUTION 10 GM PO (20:00)
[2023-12-02] MEDS: Tacrolimus 0.5 MG CAPSULE 1.5 MG PO (20:00)
[2023-12-02] MEDS: Atorvastatin Calcium 40 MG TABLET PO (20:00)
[2023-12-02 21:08] LABS: Glucose, Whole Blood 293 mg/dL (60-115)
[2023-12-02] MEDS: Insulin Glargine,Hum.rec.anlog 100 UNIT/ML 10 ML VIAL 7 UNIT SUBCUT (21:15)
[2023-12-02] MEDS: Melatonin 3 MG TABLET 6 MG PO (22:55)
[2023-12-02] MEDS: traZODone HCL 25 MG HALFTAB PO (22:55)
[2023-12-03] MEDS: Zolpidem Tartrate 5 MG TABLET PO (01:34)
[2023-12-03 03:53] VITALS: BP 96/44; PULSE 64; RESP 16; TEMP 36; O2SAT 97
[2023-12-03] MEDS: Omeprazole 40 MG CAPSULE.DR PO (06:05)
[2023-12-03 07:21] VITALS: BP 120/57; PULSE 65; RESP 16; TEMP 36.2; O2SAT 99
[2023-12-03 07:23] LABS: Glucose, Whole Blood 71 mg/dL (60-115)
[2023-12-03] MEDS: Tacrolimus 1 MG CAPSULE 2 MG PO (07:49)
[2023-12-03] MEDS: Acetaminophen 325 MG TABLET 975 MG PO (07:49)
[2023-12-03] MEDS: Furosemide 40 MG TABLET PO (07:50)
[2023-12-03] MEDS: Sennosides 8.6 MG TABLET 17.2 MG PO (07:50)
[2023-12-03] MEDS: Aspirin 81 MG TAB.CHEW PO (07:50)
[2023-12-03] MEDS: carvediloL 25 MG TABLET PO (07:50)
[2023-12-03] MEDS: 0.9 % Sodium Chloride Flush 3 ML SYRINGE IVFLUSH (07:56)
--- NOTE | 2023-12-03 08:51 | PM.DS ---
DS: Providers Provider Date of Service: 12/03/23 Date of admission: 11/30/23 19:11 Primary care physician: Moises Saldivar MD Consults: 12/01/23 12:25 Consult to Wound Care Routine Reason for consultation: wounds to bilat heels, necrotic area to right toes and small area to buttoc Has provider been notified: No DS: Diagnosis Discharge Diagnosis (1) Anasarca: Status: Acute DS: Summary Hospital Course Hospital Course: from initial hpi: 73-year-old male with pertinent history of DVT on Xarelto, CAD status post CABG, congestive heart failure with preserved ejection fraction, status post kidney transplant on tacrolimus, advanced dementia who was sent to the emergency department for evaluation of dyspnea and anasarca. Patient is a poor historian and history was obtained with the help of ER provider and chart review. Patient apparently had about 20 lb weight gain in the last 2 weeks. He does endorse dyspnea that has been ongoing for the last 7-10 days. Admits orthopnea, unknown PND. Of note, patient was recently admitted on 11/16 and discharged on 11/22 with acute encephalopathy due to gastric emphysema and hyponatremia. Unable to obtain review of systems. In the emergency department, BNP found to be elevated hospital course: Patient was admitted for acute on chronic systolic CHF. He was diuresed with IV Lasix and then transitioned back to his maintenance oral. His shortness of breath resolved. He does still have bilateral upper extremity swelling which has been going on for a few weeks. This is more likely third-spacing then hypovolemia. He is encouraged to elevate his upper extremities and can consider compression therapy. Previous Dopplers were negative for any DVT. For coronary artery disease he was continued on aspirin, Xarelto, statin. For history of DVT was continued on Xarelto. For CKD 3 status post renal transplant remained stable on Prograf. For unspecified dementia patient is at his baseline. Patient will be discharged home with services. Time Attestation Discharge Coordination Time (in mins): 35 Quality: Safe Use of Opioids Does Pt have an Active Cancer Diagnosis on the Problem List?: No Quality: Stroke Does the patient have a stroke diagnosis?: No Physical Exam Vital Signs: Vital Signs: Last Vital Signs Temp 97.2 F 12/03/23 07:21 Pulse 65 12/03/23 07:21 Resp 16 12/03/23 07:21 BP 120/57 L 12/03/23 07:21 Pulse Ox 99 12/03/23 07:21 O2 Del Method Room Air 12/03/23 07:21 O2 Flow Rate 2 12/01/23 07:21 BMI result Body Mass Index 29.3 alert oriented time 3, questionable insight, bilateral upper extremity edema improving, has sensation, good ROM DS: Data Data Completed and Pending Labs on day of discharge: Laboratory Results - last 24 hr 12/02/23 12/02/23 12/02/23 11:26 16:04 20:55 POC Glucose 201 H 186 H 293 H 12/03/23 07:19 POC Glucose 71 Discharge Plan Discharge Anticipated Discharge Date/Time: 12/03/23 08:49 Patient Disposition: Home Health Service Discharge Diagnosis: chf Referrals: Moises Saldivar MD [Primary Care Provider] - 1 Week Discharge Medications: Continued atorvastatin 40 mg tablet 40 mg PO BEDTIME carvedilol 25 mg tablet 25 mg PO BID sennosides [senna] 8.6 mg Tablet 17.2 mg PO DAILY acetaminophen 325 mg Tablet 975 mg PO TID trazodone 50 mg Tablet 25 mg PO BEDTIME PRN (Reason: Insomnia) aspirin 81 mg Tablet,Chewable 81 mg PO DAILY Hold Instructions: Resume on 11/29/23. tacrolimus 0.5 mg capsule 1.5 mg PO BEDTIME tacrolimus 0.5 mg capsule 2 mg PO DAILY@0900 insulin aspart U-100 [Novolog FlexPen U-100 Insulin] 100 unit/mL (3 mL) insulin pen 0 sliding scale dose subcut TIDAC Protocol: Insulin Correction Scale Less than or equal to 110 ---- Give (units): 0 111 to 150 Give (units): 0 151 to 200 Give (units): 2 201 to 250 Give (units): 4 251 to 300 Give (units): 6 301 to 350 Give (units): 8 Greater than 350 Give (units): 10 Call MD if Blood Glucose > : 350 lactulose 10 gram/15 mL solution 10 g PO DAILY PRN (Reason: Constipation) insulin glargine [Lantus Solostar U-100 Insulin] 100 unit/mL (3 mL) insulin pen 10 unit subcut BEDTIME furosemide 40 mg Tablet 40 mg PO DAILY Qty: 0 0RF Protocol: Hold for SBP< HOLD for SBP < : 90 omeprazole 40 mg Capsule,Delayed Release(Dr/Ec) 40 mg PO BID@0630,1630 Qty: 0 0RF rivaroxaban 15 mg tablet 15 mg PO QPM Qty: 30 0RF Rx Instructions: must administer with evening meal Discharge Orders: Discharge Order (Routine); Ordered 12/03/23 Ordered By: Fish Saavedra Diet: Low salt diet Activity on Discharge: As tolerated Stand Alone Forms: Patient Portal Discharge page Print Language: [place] Care Plan Goals: manage chf Health Concerns: chf, upper extremity swelling Plan of Treatment: conitnue lasix, elevate upper extremities, consider compression of upper extremities Assessment: see above
--- NOTE | 2023-12-03 09:48 | MHC.CM.PN ---
Patient medically cleared for dc home w/ family support ( to stay with patient), [facility], and [facility] services ([employer], home making, MOW). BLS transportation booked for 5pm. /HCP Cheryl agreeable to plan. RN, and VNA aware. IMM was delivered 12/01.
--- NOTE | 2023-12-03 09:54 | W.MHC.F2F ---
Service Date Service Date: 12/03/23 Encounter Date of encounter: 12/03/23 Reasons for Services Signs and symptoms assessed: weakness Reason for nursing home: medication management, medication treatment and teach disease management Homebound: Leaving the home is medically contraindicated at this time without the asist of a device and/or another person due th the listed conditions above and below. Reason homebound: unsteady gait / fall risk Certification: Based on the above findings, I certify that this patient is confined to the home and needs intermittent nursing home care, physical therapy and/or speech therapy, or continues to need occupational therapy. The patient is under my care, and I have initiated the establishment of the plan of care. The patient will be followed by a physician who will periodically review the plan of care. Time Spent With Patient Time: Total time managing care of this patient today ____ minutes.
[2023-12-03 11:16] LABS: Glucose, Whole Blood 130 mg/dL (60-115)
--- NOTE | 2023-12-03 13:53 | PC.NURSE ---
Pt HCP Cheryl called, all discharge instructions given over phone, states she understands all medications, wound care, and follow up care.
[2023-12-03 15:25] VITALS: BP 131/60; PULSE 64; RESP 18; TEMP 36.2; O2SAT 94
--- NOTE | 2023-12-03 16:05 | HO.WOUND ---
Wound Consult: Initial 73yr old? [place] [facility] [place] [facility] - See progress notes and H&P for detailed history.? Recent admission and discharge see history. Wound consult placed for Right Buttock, bilateral heels and toe wounds POA.? Patient agreeable to assessment and photo documentation.? Right Buttock Etiology: ?Stage 2 pressure injury - ?Present on Admission Measurements: see charting for detailed measurements Wound Bed: appears to be partial thickness tissue loss with pink red moist wound bed - evidence of previous injury with hypopigmentation noted in periwound Drainage / Odor: Sanginous scant amount Edges: ? irregular Stefanie wound: Intact scattered areas of hyperpigmentation noted - ? No Induration, Fluctuance or Warmth noted Pain: denies Goals of Treatment: ? Barrier cream for moist wound healing and to protect from friction and moisture Left Heel Etiology: ?Diabetic Wound - ?Present on Admission Measurements: see charting for detailed measurements Wound Bed: arrival with dark stable eschar noted since foam dressing had been applied and eschar is now moist and soft and yellow Drainage / Odor: yellow small amount Edges: ? irregular Stefanie wound: evidence of resolving DTI - dry callused tissue noted - ? No Induration, Fluctuance or Warmth noted Pain: reports pain Goals of Treatment: Durafiber AG Right Heel Etiology: Deep Tissue injury - ?Present on Admission Measurements: see charting for detailed measurements Wound Bed: red maroon intact nonblanchable tissue Drainage / Odor: None Edges: ? attached Stefanie wound: Intact ? No Induration, Fluctuance or Warmth noted Pain: denies pain and tenderness Goals of Treatment: ? Skin Prep to protect from friction and off load heels from surface of bed Right Toes Etiology: ?Diabetic Wound - ?Present on Admission Measurements: see charting for detailed measurements Wound Bed: dry stable eschar noted - no drainage no lifting edges Drainage / Odor: None Edges: ? irregular Stefanie wound: Intact scattered areas of redness noted - ? No Induration, Fluctuance or Warmth noted Pain: denies Goals of Treatment: ?Batadine to keep eschar stable and intact do not donate moisture to these sites Right Knee Etiology: Resurfacing Stage 2 Pressure Injury - ?Present on Admission Measurements: see charting for detailed measurements Wound Bed: adherent thin scab Drainage / Odor: None Edges: ? irregular Stefanie wound: Intact ? No Induration, Fluctuance or Warmth noted Pain: denies pain and tenderness Goals of Treatment: ?Stable may keep open to air Recommendations: 1. Turn and Reposition every 2 hours and as needed for patient comfort.? Use pillows or wedges to support off loading positions. 2. Off Load all bony prominences with use of pillows and heel boots if needed.? Apply Preventative foams where needed. ? 3. Monitor for incontinence and moisture control, use barrier creams when needed for prevention and treatment. 4. Provide adequate and supplemental nutrition.? 5. Order low air loss mattress. 6. Maintain blood glucose levels per Providers order. 7. Right Toes - Throop with Betadine Daily - Leave open to air - do not donate moisture to these sites. Off Load Pressure from heels. 8. Right Heel and Right Knee - Apply skin prep to heel and float heel of of surface of bed. 9. Right Buttock - Cleanse with Ph balance cleanser, pat dry. Apply barrier cream to protect from friction and moisture. Apply twice daily and PRN after episodes of incontinence. 10. Left Heel - Cleanse with NS moist gauze, pat dry. Apply skin prep to periwound. Apply cut to size Durafiber AG cover with dry gauze, ABD pad and gauze wrap. Change every other day. Recommend follow up out patient Wound Clinic at [address] [place] [id number] and to call for an appointment at time of discharge. [phone].? Re-consult wound care Nurse for wound deterioration or wound changes.
[2023-12-03 16:14] LABS: Glucose, Whole Blood 257 mg/dL (60-115)
== END 2023-12-03 17:33 | disposition home health service (06) | DRG 291 ==
LOC: HO.ED 18:20 → HO.EDOVER 19:16 → HO.S3 12-01 07:46
PROVIDERS: Admitting Provider Student in an Organized Health Care Education/Training Program; Emergency Provider Internal Medicine; PCP Family Medicine; Visit Provider Internal Medicine
DX: I13.0 Hypertensive heart and chronic kidney disease with heart failure and stage 1 through stage 4 chronic kidney disease, or unspecified chronic kidney disease (principal); I50.23 Acute on chronic systolic (congestive) heart failure; Z94.0 Kidney transplant status; Z66 Do not resuscitate; E11.65 Type 2 diabetes mellitus with hyperglycemia; N18.30 Chronic kidney disease, stage 3 unspecified; D63.1 Anemia in chronic kidney disease; E11.22 Type 2 diabetes mellitus with diabetic chronic kidney disease; I25.10 Atherosclerotic heart disease of native coronary artery without angina pectoris; Z86.718 Personal history of other venous thrombosis and embolism; Z95.1 Presence of aortocoronary bypass graft; F03.90 Unspecified dementia, unspecified severity, without behavioral disturbance, psychotic disturbance, mood disturbance, and anxiety; Z79.4 Long term (current) use of insulin; Z79.82 Long term (current) use of aspirin; Z79.01 Long term (current) use of anticoagulants; Z79.621 Long term (current) use of calcineurin inhibitor; Z79.899 Other long term (current) drug therapy
CPT/HCPCS: 36415; 71045; 80048; 80053; 81001; 82947; 83735; 83880; 84484; 85025; 85610; 85730; 93005; 93306; 99285; C1758; J1939; J1940; Q9957

== ENCOUNTER 2023-11-30 19:11 | Outpatient (BNV) | payer MEDICARE, SELFPAY | END 2023-12-01 07:00 | PROVIDERS: Admitting Provider Student in an Organized Health Care Education/Training Program; Emergency Provider Internal Medicine; PCP Family Medicine; Visit Provider Internal Medicine Cardiovascular Disease | DX: I35.0 Nonrheumatic aortic (valve) stenosis (principal); I34.0 Nonrheumatic mitral (valve) insufficiency | CPT/HCPCS: 93306 ==

== ENCOUNTER 2023-11-30 19:11 | Outpatient (BNV) | payer MEDICARE, SELFPAY | END 2023-11-30 23:51 | PROVIDERS: Admitting Provider Student in an Organized Health Care Education/Training Program; Emergency Provider Internal Medicine; PCP Family Medicine; Visit Provider Internal Medicine Cardiovascular Disease | DX: I50.9 Heart failure, unspecified (principal); R06.02 Shortness of breath | CPT/HCPCS: 93010 ==

== ENCOUNTER → 2023-11-30 19:11 | Outpatient (BNV) | payer MEDICARE, SELFPAY | PROVIDERS: Admitting Provider Student in an Organized Health Care Education/Training Program; Emergency Provider Internal Medicine; PCP Family Medicine; Visit Provider Student in an Organized Health Care Education/Training Program | DX: R60.1 Generalized edema (principal) | CPT/HCPCS: 99222; 99231; 99232; 99239; G0180 ==